=== PATIENT | female | born 2000 | race Caucasian/White ===

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

== ENCOUNTER 2022-09-08 16:56 | Emergency (ER) | payer MEDICAID, SELFPAY ==
[2022-09-08 16:58] VITALS: BP 158/96; PULSE 89; RESP 16; TEMP 36.4; O2SAT 98; BMI 24.0
--- NOTE | 2022-09-08 17:16 | EDS_ITS ---
HPI History of Present Illness Chief Complaint: Head Injury [facility] Medical History S/p Removal of port wine from back Home Medications hydroxyzine HCl 25 mg tablet 25 mg PO Q6H PRN anxiety #40 tabs 11/16/20 [Rx Last Taken Unknown] Allergy/AdvReac Type Severity Reaction Status Date / Time No Known Allergies Allergy Verified 05/16/21 17:51 Family History Unknown Hypertension Thyroid disorder Cancer Diabetes Arthritis Social History Smoking Status: Never smoker alcohol intake: never EXAM Physical Exam Const Vital Signs: 09/08/22 16:58 09/08/22 16:57 Temperature 97.5 F L Temperature Source Temporal Pulse Rate 89 Respiratory Rate 16 Respiratory Effort Normal Respiratory Pattern Normal Blood Pressure 158/96 H Blood Pressure Mean 116 Pulse Ox 98 Oxygen Delivery Method Room Air Discharge Plan Triage Chief Complaint: Head Injury ED Provider: Srinivasa Art Dx/Rx/DC Orders Prescriptions: No Action hydroxyzine HCl 25 mg tablet 25 mg PO Q6H PRN (Reason: anxiety) Qty: 40 0RF Primary Care Provider: Francisco Corrigan Referrals: Francisco Corrigan MD [Primary Care Provider] -
--- NOTE | 2022-09-08 17:16 | EX.ED.GENINJ ---
HPI History of Present Illness Chief Complaint: Head Injury Informant: patient Onset/Context/Timing Onset: Yesterday Mechanism/Context: Blunt Injury Quality of Pain: Aching Location: Frontal scalp Worsened by: Nothing Relieved by: Nothing Associated Symptoms Associated Symptoms: Negative for Parasthesias, Weakness, Loss of function, Inability to ambulate, Loss of consciousness or Amnesia Narrative Narrative: Patient presents with a head injury that occurred last night. Patient states she was talking on the phone and was walking. Patient states it was dark and she did not see a tree branch. Patient states she hit the front of her head on the tree branch. Patient denies any loss of consciousness. Patient admits to some nausea but denies any vomiting. Patient describes her pain as aching. Patient states it is over the frontal area. Patient denies any paresthesias or weakness. Patient denies any neck pain. Patient denies any other injuries. Patient does admit to drinking alcohol last night. PFSH PFS Medical History S/p Removal of port wine from back Home Medications hydroxyzine HCl 25 mg tablet 25 mg PO Q6H PRN anxiety #40 tabs 11/16/20 [Rx Last Taken Unknown] Allergy/AdvReac Type Severity Reaction Status Date / Time No Known Allergies Allergy Verified 05/16/21 17:51 Family History Unknown Hypertension Thyroid disorder Cancer Diabetes Arthritis Social History Smoking Status: Never smoker alcohol intake: never ROS ROS ED Constitutional Constitutional ED: Denies chills or fever(s) Eyes Eyes: Denies blurry vision or change in vision ENT ENT ED: Denies rhinorrhea or sore throat Cardiovascular Cardiovascular: Denies chest pain or palpitations Respiratory/Chest Respiratory/Chest: Denies cough or dyspnea Gastrointestinal Gastrointestinal: Reports nausea; Denies vomiting Genitourinary Genitourinary ED: Denies dysuria or hematuria Musculoskeletal Musculoskeletal: Denies back pain or neck pain Integumentary Denies abscess or rash Neurologic Neurologic: Reports headache(s); Denies weakness Allergic/Immunologic Allergic/Immunologic ED: Denies mouth swelling or urticaria EXAM Physical Exam Const Vital Signs: 09/08/22 16:58 09/08/22 16:57 Temperature 97.5 F L Temperature Source Temporal Pulse Rate 89 Respiratory Rate 16 Respiratory Effort Normal Respiratory Pattern Normal Blood Pressure 158/96 H Blood Pressure Mean 116 Pulse Ox 98 Oxygen Delivery Method Room Air Positive well nourished and well developed General Appearance ED: well developed and NAD HEENT Reports moist mucous membranes HEENT Narrative: There is tenderness over the frontal scalp. There is no edema or ecchymosis. There is no bony crepitance or step-off noted. There is no hematoma noted. Eyes PERRL and EOMs intact bilaterally Neck supple and no JVD Resp normal respiratory effort and clear to auscultation bilaterally Cardio regular rate, regular rhythm and no murmurs Extremity normal to inspection Neuro oriented x3, CN's II-XII intact bilaterally, moves all extremities, no focal motor deficits, no sensory deficits noted and gait normal Sensorium / Orientation: alert Motor Exam: strength 5/5 throughout Psych mental status grossly normal Skin no rashes or lesions noted MDM MDM MDM Narrative Medical decision making narrative: Patient was advised that there is no need for CT scan at this time. Patient does not meet criteria for head CT scan according to the [employer] head CT criteria. Patient was given head injury instructions. Patient was instructed use ice to the area. Patient was instructed to take Tylenol or ibuprofen as needed for headaches. Patient was instructed to follow-up with her primary care physician in 5 to 7 days. Patient understood and was agreeable with the plan. All questions were answered. Discharge Plan Triage Chief Complaint: Head Injury ED Provider: Srinivasa Art Dx/Rx/DC Orders Clinical Impression: Closed head injury Instructions: ED Head Injury (Adult) Prescriptions: No Action hydroxyzine HCl 25 mg tablet 25 mg PO Q6H PRN (Reason: anxiety) Qty: 40 0RF Primary Care Provider: Francisco Corrigan Referrals: Francisco Corrigan MD [Primary Care Provider] - 5-7 Days Disposition Disposition: Home, Self Care
[2022-09-08 17:57] VITALS: BP 124/78; PULSE 64; RESP 14; TEMP 36.6; O2SAT 100
== END 2022-09-08 18:05 | disposition home or self-care (01) ==
LOC: ED 17:42
PROVIDERS: Emergency Provider Emergency Medicine; Visit Provider Emergency Medicine
DX: S09.8XXA Other specified injuries of head, initial encounter (principal); W22.8XXA Striking against or struck by other objects, initial encounter; Y93.01 Activity, walking, marching and hiking
CPT/HCPCS: 99282

== ENCOUNTER 2024-10-30 19:44 | Emergency (ER) | payer MEDICAID, SELFPAY ==
[2024-10-30 19:45] VITALS: BP 115/97; PULSE 110; RESP 15; TEMP 37.3; O2SAT 97; BMI 26.6
[2024-10-30 19:49] VITALS: BP 115/97; PULSE 114; RESP 15; TEMP 37.3; O2SAT 97
--- NOTE | 2024-10-30 20:33 | ED.RN ---
Pt's name called for placement in ED room from waiting room. Pt not located, assumed lwbs.
--- OUTSIDE RECORDS SUMMARY | 2024-10-30 20:50 | XMS RPT_ITS | CCD ---
Author Organization [facility] Content RamenFormerly [facility] Care Team Providers Care 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 Name Role Phone MICHAEL ELLIOTT DO Admitting Unavailable MICHAEL ELLIOTT DO Attending Unavailable MICHAEL ELLIOTT DO Primary Care Unavailable FRANCISCO DELGADILLO Consulting Unavailable FRANCISCO DELGADILLO Referring Unavailable PROVIDER, UNKNOWN Consulting Unavailable Francisco Delgadillo MD Primary Care Provider Francisco Delgadillo MD Primary Care Provider Francisco Delgadillo MD Primary Care Provider FRANCISCO DELGADILLO Primary Care Unavailable LEONA, FRANCISCO P Primary Care Unavailable LEONA, FRANCISCO P Primary Care Unavailable LEONA, FRANCISCO P Primary Care Unavailable ANGELITA GHOTRA Referring Unavailable LEONA, FRANCISCO P Primary Care Unavailable LEONA, FRANCISCO P Primary Care Unavailable LEONA, FRANCISCO P Primary Care Unavailable LEONA, FRANCISCO P Primary Care Unavailable LEONA, FRANCISCO P Primary Care Unavailable Srinivasa Art Attending Unavailable Care Physician, No Primary Primary Care Unava ilFrancisco Sales MD Primary Care Provider Medications Current Medications Medication Drug Class(es) Dates Sig (Normalized) Sig (Original) acetaminophen 325 mg oral capsule (10 sources) acetaminophen 32 5 mg cap Take by mouth. Active Comment on above: Take by mouth. [id number] 200 actuat albuterol 0.09 mg/actuat metered dose inhaler (11 sources) beta2-Adrenergic Agonist Start: 04-20-2020 take 2 puff(s) by inhalation every six hours as needed albuterol HFA (PROAIR HFA) 90 mcg/actuation inhaler Inhale 2 Puffs as instructed every 6 hours as needed. 18 g 04/20/2020 Active Comment on above: Inhale 2 Puffs as in structed every 6 hours as needed. Desogestrel / Ethinyl Estradiol (10 sources) Progestin, Estrogen Start: 11-14-2020 take 1 tablet by mouth once daily, then take 0.15 tablet by mouth once Desogestrel-Ethiny l Estradiol (APRI) 0.15-0.03 mg per tablet Indications: Encounter for BCP ( control pills) initial prescription Take 1 tablet by mouth once daily. 28 tablet 11 11/14/2020 Active Comment on above: Take 1 tablet by timothy th once daily. doxycycline monohydrate 100 mg oral tablet (1 source) Tetracycline-class Drug Start: 11-18-2021 End: 11-23-2021 take 1 tablet by mouth twice daily doxycycline monohydrate 100 mg tablet Take 1 tablet by mouth twice daily for 5 days. 10 tablet 0 11/18/2021 11/23/2021 Active Comment on above: Take 1 tablet by timothy twice daily for 5 days. erythromycin 0.005 mg/mg ophthalmic ointment (2 sources) Macrolide, Macrolide Antimicrobial Start: 11-28-2021 End: 12-12-2021 erythromycin (ROMYCIN) 5 mg/gram (0.5 %) ophthalmic ointment Indications: Hordeolum externum of left upper eyelid Use 1 application in the left eye four times daily for 14 days. 3.5 g 0 11/28/2021 12/12/2021 Active Comment on above: Use 1 application in the left eye four times daily for 14 days. hydrOXYzine hydrochloride 25 mg oral tablet (1 source) Antihistamine Start: 11-16-2020 take 25 mg by mouth every six hours Hydroxyzine Hcl Active 25 MG PO EVERY 6 HOURS 40 November 16, 2020 8:54pm lactobacillus acidophilus [id number] unt oral capsule (10 sources) Lactobacillus acidophilus (PROBIOTIC) 10 billion cell cap Take by mouth. Active Comment on above: Take by mouth. polyethylene glycol 3350 15726 mg powder for oral solution (10 sources) Osmotic Laxative Start: 05-15-2021 polyethylene glycol 3350 (MIRALAX) 17 gram/dose powder Constipation 116 g 05/15/2021 Active Comment on above: Constipation predniSONE 20 mg oral tablet (1 source) Start: 11-18-2021 End: 10-14-2022 take 1 tablet by mouth once daily predniSONE (DELTASONE) 20 mg tablet Take 1 tablet by mouth once daily for 5 days. 5 tablet 0 11/18/2021 11/23/2021 Active Comment on above: Take 1 tablet by timothy once daily for 5 days. Completed/Discontinued Medications Medication Drug Class(es) Dates Sig (Normalized) Sig (Original) brompheniramine maleate 0.4 mg/ml / dextromethorphan hydrobromide 2 mg/ml / pseudoephedrine hydrochloride 6 mg/ml oral solution (11 sources) alpha-Adrenergic Agonist, Uncompetitive O-xgeggj-H-aspartat e Receptor Antagonist, Sigma-1 Agonist Start: 12-22-2020 End: 03-19-2022 take 5-10 mL by mouth every six hours as needed Brompheniramine -Pseudoeph-DM (BROMFED DM) 2-30-10 mg/5 mL syrup Indications: Viral URI with cough Take 5-10 ml po q6h prn 120 mL 0 03/19/2022 Active Start: 04-15-2019 End: 06-07-2020 take 5 mL by mouth every six hours as needed Oojhhejtoarguew-Xnkftxjzh-QU (BROMFED DM ) 2-30-10 mg/5 mL syrup Take 5 mL by mouth four times daily as needed. 118 mL 04/15/2019 06/07/2020 Discontinued (Course of therapy completed) Comment on above: Take 5-10 ml po q6h prn Methylphenidate (1 source) Central Nervous System Stimulant Start: 03-19-2015 End: 10-14-2019 Concerta Discontinued March 19, 2015 11:19am October 14, 2019 8:01am Problems Active Problems Problem Classification Problem Date Documented Date Episodic/Chronic Abdominal pain (4 sources) Generalized abdominal pain; Translations: [Generalized abdominal pain] Onset: 05-15-2021 Episodic Administrative/social admission (1 source) Special examination status; Translations: [Encounter for examination for participation in sport] Episodic Anxiety disorders (1 source) Anxiety; Translations: [Anxiety disorder, unspecified] Chronic Attention-deficit, conduct, and disruptive behavior disorders (11 sources) Attention deficit hyperactivity disorder; Translations: [Attention-deficit hyperactivity disorder, unspecified type] Onset: 05-09-2016 05-09-2016 Chronic Cardiac dysrhythmias (1 source) Palpitations; Translations: [Palpitations] Episodic Immunizations and screening for infectious disease (2 sources) Contact with or exposure to other viral diseases; Translations: [Exposure to COVID-19 virus] Episodic Inflammation; infection of eye (except that caused by tuberculosis or sexually transmitteddisease) (1 source) Hordeolum externum of upper eyelid of left eye; Translations: [Hordeolum externum left upper eyelid] Episodic Malaise and fatigue (1 source) Fatigue; Translations: [Other fatigue] Episodic Other infections; including parasitic (1 source) Disorder due to infection; Translations: [Unspecified infectious disease] Episodic Other injuries and conditions due to external causes (1 source) Other specified injuries of head, initial encounter; Translations: [Other specified injuries of head, initial encounter] Onset: 09-12-2022 Episodic Other upper respiratory infections (5 sources) Pharyngitis; Translations: [Acute pharyngitis, unspecified] Episodic Sprains and strains (1 source) Sprain of ligament of elbow; Translations: [Unspecified sprain of right elbow, initial encounter] Episodic Viral infection (1 source) Viral disease; Translations: [Viral infection, unspecified] Episodic Past or Other Problems Problem Classification Problem Date Documented Da te Episodic/Chronic Other and unspecified benign neoplasm (11 sources) Hemangioma of skin and subcutaneous tissue; Translations: [Hemangioma of skin and subcutaneous tissue] Onset: 10-29-2005 10-29-2005 Episodic Other circulatory disease (11 sources) Disorder of capillaries; Translations: [Disease of capillaries, unspecified] Onset: 10-29-2005 10-29-2005 Episodic Other skin disorders (11 sources) Scar conditions and fibrosis of skin; Translations: [Scar conditions and fibrosis of skin] Onset: 10-29-2005 10-29-2005 Episodic Results Test Name Value Interpretation Reference Range Facility Emergency Department Summary on 09-08-2022 Emergency Department Summary [facility] Medical Records Department [address] [place] [address] Emergency Department Summary 09/08/22 MR#: [id number] Acct: [id number] Name: NORMA FAUSTIN Rep #: [id number] : 2000 From: Srinivasa Art DO PCP: Care Physician,No Primary Status:DEP ER Location: ED HPI History of Present Illness Chief Complaint: Head Injury Informant: patient Onset/Context/Timing Onset: Yesterday Mechanism/Context: Blunt Injury Quality of Pain: Aching Location: Frontal scalp Worsened by: Nothing Relieved by: Nothing Associated Symptoms Associated Symptoms: Negative for Parasthesias, Weakness, Loss of function, Inability to ambulate, Loss of consciousness or Amnesia Narrative Narrative: Patient presents with a head injury that occurred last night. Patient states she was talking on the phone and was walking. Patient states it was dark and she did not see a tree branch. Patient states she hit the front of her head on the tree branch. Patient denies any loss of consciousness. Patient admits to some nausea but denies any vomiting. Patient describes her pain as aching. Patient states it is over the frontal area. Patient denies any paresthesias or weakness. Patient denies any neck pain. Patient denies any other injuries. Patient does admit to drinking alcohol last night. PFSH PFS Medical History S/p Removal of port wine from back Home Medications hydroxyzine HCl 25 mg tablet 25 mg PO Q6H PRN anxiety #40 tabs 11/16/20 [Rx Last Taken Unknown] Allergy/AdvReac Type Severity Reaction Status Date / Time No Known Allergies Allergy Verified 05/16/21 17:51 Family History Unknown Hypertension Thyroid disorder Cancer Diabetes Arthritis Social History Smoking Status: Never smoker alcohol intake: never ROS ROS ED Constitutional Constitutional ED: Denies chills or fever(s) Eyes Eyes: Denies blurry vision or change in vision ENT ENT ED: Denies rhinorrhea or sore throat Cardiovascular Cardiovascular: Denies chest pain or palpitations Respiratory/Chest Respiratory/Chest: Denies cough or dyspnea Gastrointestinal Gastrointestinal: Reports nausea; Denies vomiting Genitourinary Genitourinary ED: Denies dysuria or hematuria Musculoskeletal Musculoskeletal: Denies back pain or neck pain Integumentary Denies abscess or rash Neurologic Neurologic: Reports headache(s); Denies weakness Allergic/Immunologic Allergic/Immunologic ED: Denies mouth swelling or urticaria EXAM Physical Exam Const Vital Signs: 09/08/22 16:58 09/08/22 16:57 Temperature 97.5 F L Temperature Source Temporal Pulse Rate 89 Respiratory Rate 16 Respiratory Effort Normal Respiratory Pattern Normal Blood Pressure 158/96 H Blood Pressure Mean 116 Pulse Ox 98 Oxygen Delivery Method Room Air Positive well nourished and well developed General Appearance ED: well developed and NAD HEENT Reports moist mucous membranes HEENT Narrative: There is tenderness over the frontal scalp. There is no edema or ecchymosis. There is no bony crepitance or step-off noted. There is no hematoma noted. Eyes PERRL and EOMs intact bilaterally Neck supple and no JVD Resp normal respiratory effort and clear to auscultation bilaterally Cardio regular rate, regular rhythm and no murmurs Extremity normal to inspection Neuro oriented x3, CN's II-XII intact bilaterally, moves all extremities, no focal motor deficits, no sensory deficits noted and gait normal Sensorium / Orientation: alert Motor Exam: strength 5/5 throughout Psych mental status grossly normal Skin no rashes or lesions noted MDM MDM MDM Narrative Medical decision making narrative: Patient was advised that there is no need for CT scan at this time. Patient does not meet criteria for head CT scan according to the [employer] head CT criteria. Patient was given head injury inst ructions. Patient was instructed use ice to the area. Patient was instructed to take Tylenol or ibuprofen as needed for headaches. Patient was instructed to follow-up with her primary care physician in 5 to 7 days. Patient understood and was agreeable with the plan. All questions were answered. Discharge Plan Triage Chief Complaint: Head Injury ED Provider: Srinivasa Art Dx/Rx/DC Orders Clinical Impression: Closed head injury Instructions: ED Head Injury (Adult) Prescriptions: No Action hydroxyzine HCl 25 mg tablet 25 mg PO Q6H PRN (Reason: anxiety) Qty: 40 0RF Primary Care Provider: Francisco Delgadillo Referrals: Francisco Delgadillo MD [Primary Care Provider] - 5-7 Days Disposition Disposit (more content not included)... Normal [facility] CNOVon 03-19-2022 CNOV Office Visit ([facility] ) CAPONORMA Serina ([id number]) 4 F Date Time Provider Department 03/19/22 2:30 PM ANGELINA SILVEIRA [facility] During your visit today, we recorded the following information about you: Temperature Pulse Respiration Blood pressure 97.5 degrees 76/minute 16/minute 120/72 Weight 84.4 kg Angelina Silveira APRN.CNP 03/19/2022 2:51 PM Signed ASSESSMENT/PLAN: 1. Sore throat - ICD9: 462, ICD10: J02.9 (primary diagnosis) - suspect viral - Alere Strep Test negative, no culture pending - Discussed supportive care treatment with fluids, rest and analgesia. - STREP A MOLECULAR (POC) 2. Viral URI with cough - ICD9: 465.9, ICD10: J06.9 - Discussed viral etiology and rationale for treatment. - Symptomatic treatment with prn analgesia - Supportive care with fluids and rest - BROMPHENIRAMINE-PSEUDO EPHEDRINE-DM 2 MG-30 MG-10 MG/5 ML ORAL SYRUP - offered COVID/flu testing, patient declined. - Follow-up with your PCP in 3-5 days if symptoms have not improved or sooner if symptoms worsen - Discussed red flags and need for immediate medical evaluation if any occur. - Discussed supportive care treatment with fluids, rest and analgesia. - Discussed expected course of illness Angelina Silveira APRN.CNP Treatment for Viral Upper Respiratory Tract Infections Your body will kill off the virus by itself. Additionally, you can prime your body's immune system. This may help you get better more quickly. Drink lots of fluids Make sure you are eating well Get plenty of rest We do not have any medications that kill off these viruses. Antibiotics are used to treat bacterial infections; however, they are not active against viral infections. There are some things that might help you feel better, though. Vaporizers, humidifiers, hot showers, and hot fluids help open respiratory and sinus passages [place] [employer] may offer relief of nasal and head congestion Vu's Vapor Rub may relieve congestion Tylenol and Advil help control fevers and headaches Salt water gargles help relieve sore throats Chloraceptic spray or throat lozenges may also help relieve sore throat symptoms Occasionally, viral infections turn into something more serious. You should see your doctor or return to the Urgent Care if: You have fevers for longer than five days You have fevers above 102 degrees You are still sick after 10 days You have shortness of breath or wheezing After several days you are getting worse rather than better Angelina Silveira APRN.EDITING COMPUTER PUBLISHER 03/19/2022 2:59 PM Signed Subjective Sinus Problem Associated symptoms include congestion, coughing and a sore throat. Pertinent negatives include no chills, fever or rash. Norma Faustin is a 21 year old female who presents with sinus drainage, cough, sore throat for the past 4 days. She had a fever the first day of the illness but that resolved. She has been taking Nyquil at home. Her boyfriend was sick recently. Review of Systems Constitutional: Negative for chills and fever. HENT: Positive for congestion and sore throat. Negative for ear pain. Respiratory: Positive for cough. Cardiovascular: Negative. Musculoskeletal: Negative. Skin: Negative for rash. BP 120/72 Pulse 76 Temp 36.4 ?C (97.5 ?F) Resp 16 Wt 84.4 kg (186 lb) LMP 02/02/2022 (Exact Date) SpO2 98% PAST MEDICAL HISTORY Diagnosis Date ADHD (attention deficit hyperactivity disorder) Irregular periods -2016 Age 14 PMH - PAST MEDICAL HISTORY OF 01/03/12 Color Vision - Normal PAST SURGICAL HISTORY Procedure Laterality Date BACK SURGERY HX 2010 Tumor/ adrien removed NONE ALLERGIES Patient has no known allergies. MEDICATIONS acetaminophen 325 mg cap Take by mouth. Lactobacillus acidophilus (PROBIOTIC) 10 billion cell cap Take by mouth. Brompheniramine-Pseudo eph-DM (BROMFED DM) 2-30-10 mg/5 mL syrup Take 5-10 ml po q6h prn polyethylene glycol 3350 (MIRALAX) 17 gram/dose powder Constipation (Patient not taking: Reported on 11/28/2021) Desogestrel-Ethinyl Estradiol (APRI) 0.15-0.03 mg per tablet Take 1 tablet by mouth once daily. (Patient not taking: Reported on 03/19/2021 ) albuterol HFA (PROAIR HFA) 90 mcg/actuation inhaler Inhale 2 Puffs as instructed every 6 hours as needed. (Patient not taking: Reported on 11/14/2020 ) FAMILY HISTORY Problem Relation Age of Onset other (Robins-Miguel Syndrome) Father diagnosed 01/2016 None Paternal Grandfather Social History Tobacco Use Smoking status: Never Passive exposure: Yes Smokeless tobacco: Never Tobacco comments: Mother smokes outside of the home Vaping Use Vaping Use: Former Substance Use Topics Alcohol use: No Drug use: No Objective Physical Exam Vitals and nursing note reviewed. Constitutional: Appearance: Normal appearance. HENT: Right Ear: Tympanic membrane, ear (more content not included)... Normal [facility] STREP A MOLECULAR (POC)on Procedural Control Valid [facility] Strep A (POCT) Negative Negative [facility] CNOVon 02-19-2022 CNOV Office Visit ([facility] ) NORMA FAUSTIN ([id number]) 4 F Date Time Provider Department 02/19/22 1:15 PM NIGHAT SOLIMAN WS During your visit today, we recorded the following information about you: Temperature Pulse Respiration Blood pressure 98.7 degrees 98/minute 16/minute 120/66 Weight Last Period 85.2 kg 02/02/22 Nighat Soliman APRN.EDITING COMPUTER PUBLISHER 02/19/2022 2:03 PM Signed This note was created using [employer] Systems[employer]. Subjective Norma Smalls Capo is a 21 year old female. 21 year old female with PMH ADHD presents with complaints of illness. 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 No records management associate was used. URI She complains of cough. There is no chest tightness, difficulty breathing, frequent throat clearing, hemoptysis, hoarse voice, shortness of breath, sputum production or wheezing. This is a new problem. The current episode started in the past 7 days. The problem occurs constantly. The problem has been unchanged. The cough is non-productive. Associated symptoms include ear congestion, a fever, headaches, malaise/fatigue, myalgias, nasal congestion, rhinorrhea and a sore throat. Pertinent negatives include no appetite change, chest pain, dyspnea on exertion, ear pain, heartburn, orthopnea, PND, postnasal drip, sneezing, sweats, trouble swallowing or weight loss. Her symptoms are aggravated by nothing. Her symptoms are alleviated by nothing. She reports no improvement on treatment. There are no known risk factors for lung disease. There is no history of asthma, bronchiectasis, bronchitis, COPD, emphysema or pneumonia. PAST MEDICAL HISTORY Diagnosis Date ADHD (attention deficit hyperactivity disorder) Irregular periods -2015 Age 14 PMH - PAST MEDICAL HISTORY OF 01/03/12 Color Vision - Normal PAST SURGICAL HISTORY Procedure Laterality Date BACK SURGERY HX 2010 Tumor/ adrien removed NONE ALLERGIES Patient has no known allergies. MEDICATIONS acetaminophen 325 mg cap Take by mouth. Lactobacillus acidophilus (PROBIOTIC) 10 billion cell cap Take by mouth. polyethylene glycol 3350 (MIRALAX) 17 gram/dose powder Constipation (Patient not taking: Reported on 11/28/2021) Brompheniramine-Pseudo eph-DM (BROMFED DM) 2-30-10 mg/5 mL syrup Take 5-10 ml po q6h prn (Patient not taking: Reported on 03/19/2021 ) Desogestrel-Ethinyl Estradiol (APRI) 0.15-0.03 mg per tablet Take 1 tablet by mouth once daily. (Patient not taking: Reported on 03/19/2021 ) albuterol HFA (PROAIR HFA) 90 mcg/actuation inhaler Inhale 2 Puffs as instructed every 6 hours as needed. (Patient not taking: Reported on 11/14/2020 ) FAMILY HISTORY Problem Relation Age of Onset other (Robins-Miguel Syndrome) Father diagnosed 01/2016 None Paternal Grandfather Social History Tobacco Use Smoking status: Never Passive exposure: Yes Smokeless tobacco: Never Tobacco comments: Mother smokes outside of the home Vaping Use Vaping Use: Former Substance Use Topics Alcohol use: No Drug use: No Review of Systems Constitutional: Positive for chills, fatigue, fever and malaise/fatigue. Negative for appetite change and weight loss. HENT: Positive for congestion, rhinorrhea and sore throat. Negative for ear pain, hoarse voice, postnasal drip, sneezing and trouble swallowing. Eyes: Negative for photophobia, pain, discharge, redness, itching and visual disturbance. Respiratory: Positive for cough. Negative for apnea, hemoptysis, sputum production, chest tightness, shortness of breath and wheezing. Cardiovascular: Negative for chest pain, dyspnea on exertion and PND. Gastrointestinal: Negative for abdominal pain, diarrhea, heartburn, nausea and vomiting. Musculoskeletal: Positive for myalgias. Negative for arthralgias, back pain and gait problem. Skin: Negative for color change, pallor, rash and wound. Allergic/Immunologic: Negative for environmental allergies, food allergies and immunocompromised state. Neurological: Positive for headaches. Negative for dizziness and facial asymmetry. Hematological: Negative for adenopathy. Does not bruise/bleed easily. Psychiatric/Behavioral : Negative for agitation and behavioral problems. Objective BP 120/66 Pulse 98 Temp 37.1 ?C (98.7 ?F) (Tympanic) Resp 16 Wt 85.2 kg (187 lb 12.8 oz) LMP 02/02/2022 (Exact Date) SpO2 99% Physical Exam Vitals and nursing note reviewed. Constitutional: General: She is not in acute distress. Appearance: Normal appearance. She is normal weight. She is not ill-appearing, toxic-appearing or diaphoretic. HENT: Head: (more content not included)... Normal [facility] STREP A MOLECULAR (POC)on Procedural Control Valid [facility] Strep A (POCT) Negative Negative [facility] Bailee 12-13-2021 [facility] Telephone ([facility]) NORMA FAUSTIN ([id number]) 4 F Date Time Provider Department 12/13/21 ANGELITA GHOTRA YAAKOV During your visit today, we recorded the following information about you: Angelita Ghotra APRN.FARRUKH 12/13/2021 7:38 AM Signed Negative for flu and COVID please notify thank you Brandon Aponte LPN 12/13/2021 8:57 AM Signed Phone call placed patients mother (Jocelin) listed on chart advised (see prior provider encounter) Brandon Aponte LPN Allergies As of Date: 12/13/2021 (No Known Allergies) Date Reviewed: 12/12/2021 Reviewed by: Bradly Vernon APRN.FARRUKH - Fully Assessed Reason for Visit: Results [95] Prescriptions as of 12/13/2021 - acetaminophen 325 mg cap Take by mouth. - Lactobacillus acidophilus (PROBIOTIC) 10 billion cell cap Take by mouth. - polyethylene glycol 3350 (MIRALAX) 17 gram/dose powder Constipation - Brompheniramine-Pseudo eph-DM (BROMFED DM) 2-30-10 mg/5 mL syrup Take 5-10 ml po q6h prn - Desogestrel-Ethinyl Estradiol (APRI) 0.15-0.03 mg per tablet Take 1 tablet by mouth once daily. - albuterol HFA (PROAIR HFA) 90 mcg/actuation inhaler Inhale 2 Puffs as instructed every 6 hours as needed. 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] 10/29/2005 SCAR AND FIBROSIS OF SKIN [L90.5] 10/29/2005 ADHD (attention deficit hyperactivity disorder)*05/09/2016 Encounter Status:Closed by BRANDON APONTE LPN on 12/13/21 [facility] CNOVon 12-12-2021 CNOV Office Visit ([facility] ) NORMA FAUSTIN ([id number]) 4 F Date Time Provider Department 12/12/21 3:30 PM JANEEN BRADLY [facility] During your visit today, we recorded the following information about you: Temperature Pulse Respiration Blood pressure 98.7 degrees 75/minute 23/minute 102/80 Weight 85.2 kg Bradly Vernon APRN.EDITING COMPUTER PUBLISHER 12/12/2021 3:42 PM Signed Subjective HPI Nontoxic-appearing female presents urgent care chief plaint sore throat headache fatigue. Duration of symptoms 3 days. Associated symptoms listed above. Patient states most prominent symptom today is fatigue. Was sent home from work earlier today. No known sick contacts. Has not use any OTC medications today. History of strep throat. This feels similar. Denies any fever today body aches chills productive cough chest pain shortness of breath pleuritic pain hemoptysis nausea vomiting abdominal pain change in bowel or bladder habits. Past medical history prescription medication use and allergies reviewed. .Patient presents with: Sore Throat: STEVENSON, fever x 3 days PAST MEDICAL HISTORY Diagnosis Date ADHD (attention deficit hyperactivity disorder) Irregular periods -2015 Age 14 PMH - PAST MEDICAL HISTORY OF 01/03/12 Color Vision - Normal PAST SURGICAL HISTORY Procedure Laterality Date BACK SURGERY HX 2010 Tumor/ adrien removed NONE ALLERGIES Patient has no known allergies. MEDICATIONS erythromycin (ROMYCIN) 5 mg/gram (0.5 %) ophthalmic ointment Use 1 application in the left eye four times daily for 14 days. acetaminophen 325 mg cap Take by mouth. Lactobacillus acidophilus (PROBIOTIC) 10 billion cell cap Take by mouth. polyethylene glycol 3350 (MIRALAX) 17 gram/dose powder Constipation (Patient not taking: Reported on 11/28/2021) Brompheniramine-Pseudo eph-DM (BROMFED DM) 2-30-10 mg/5 mL syrup Take 5-10 ml po q6h prn (Patient not taking: Reported on 03/19/2021 ) Desogestrel-Ethinyl Estradiol (APRI) 0.15-0.03 mg per tablet Take 1 tablet by mouth once daily. (Patient not taking: Reported on 03/19/2021 ) albuterol HFA (PROAIR HFA) 90 mcg/actuation inhaler Inhale 2 Puffs as instructed every 6 hours as needed. (Patient not taking: Reported on 11/14/2020 ) FAMILY HISTORY Problem Relation Age of Onset other (Robins-Miguel Syndrome) Father diagnosed 01/2016 None Paternal Grandfather Social History Tobacco Use Smoking status: Never Passive exposure: Yes Smokeless tobacco: Never Tobacco comments: Mother smokes outside of the home Vaping Use Vaping Use: Former Substance Use Topics Alcohol use: No Drug use: No BP 102/80 Pulse 75 Temp 37.1 ?C (98.7 ?F) Resp 23 Wt 85.2 kg (187 lb 12.8 oz) LMP 09/23/2021 (Exact Date) SpO2 99% Review of Systems Constitutional: Positive for fever and malaise/fatigue. Negative for chills. HENT: Positive for sore throat. Negative for congestion, ear discharge, ear pain and sinus pain. Eyes: Negative for blurred vision, pain, discharge and redness. Respiratory: Negative for cough, hemoptysis, sputum production, shortness of breath, wheezing and stridor. Cardiovascular: Negative for chest pain. Gastrointestinal: Negative for abdominal pain, diarrhea, nausea and vomiting. Musculoskeletal: Positive for myalgias. Skin: Negative for itching and rash. Neurological: Positive for headaches. Negative for dizziness. Objective Physical Exam Constitutional: General: She is not in acute distress. Appearance: She is not diaphoretic. HENT: Head: Normocephalic. Jaw: No trismus or tenderness. Nose: Nose normal. Mouth/Throat: Lips: [place]. Mouth: Mucous membranes are moist. Pharynx: Oropharynx is clear. Uvula midline. Posterior oropharyngeal erythema present. No pharyngeal swelling, oropharyngeal exudate or uvula swelling. Tonsils: No tonsillar exudate or tonsillar abscesses. Eyes: Conjunctiva/sclera: Conjunctivae normal. Pupils: Pupils are equal, round, and reactive to light. Cardiovascular: Rate and Rhythm: Normal rate and regular rhythm. Heart sounds: Normal heart sounds. Pulmonary: Effort: Pulmonary effort is normal. No tachypnea, accessory muscle usage or respiratory distress. Breath sounds: Normal breath sounds. No stridor. No wheezing, rhonchi or rales. Abdominal: Palpations: Abdomen is soft. Tenderness: There is no abdominal tenderness. Musculoskeletal: Cervical back: Normal range of motion and neck supple. No rigidity or tenderness. Lymphadenopathy: Cervical: No cervical adenopathy. Skin: General: Skin is warm and dry. Neurological: Mental Status: She is alert and oriented to person, place, and time. ASSESSMENT/PLAN: 1. Pharyngitis, unspecified etiology - ICD9: 462, ICD10: J02.9 (primary diagnosis) - STREP A MOLECULAR (POC) - COVID WITH FLUA+B, ROUTINE - MONOTEST, INFECTIOUS MONO 2. Fatigue, unspeci (more content not included)... Normal [facility] STREP A MOLECULAR (POC)on Procedural Control Valid [facility] Strep A (POCT) Negative Negative [facility] CNOVon 11-28-2021 CNOV Office Visit (UCWSTR ) CAPONORMA ([id number]) 4 F Date Time Provider Department 11/28/21 4:45 PM [facility] During your visit today, we recorded the following information about you: Temperature Pulse Respiration Blood pressure 98 degrees 76/minute 21/minute 118/80 Weight 85 kg Monie Patino APRN.CNP 11/28/2021 5:02 PM Signed SUBJECTIVE: Norma Smalls Capo is a 21 year old female. Who presents today with a stye to her left upper eyelid. She was treated 10 days ago with doxy and prednisone. It almost went away and now it is back. She has no blurred vision. No fever she has no pain in the eye itself. She is here today with concern of stye HPI PAST MEDICAL HISTORY Diagnosis Date ADHD (attention deficit hyperactivity disorder) Irregular periods -2015 Age 14 PMH - PAST MEDICAL HISTORY OF 01/03/12 Color Vision - Normal FAMILY HISTORY Problem Relation Age of Onset other (Robins-Miguel Syndrome) Father diagnosed 01/2016 None Paternal Grandfather Social History Tobacco Use Smoking status: Never Passive exposure: Yes Smokeless tobacco: Never Tobacco comments: Mother smokes outside of the home Vaping Use Vaping Use: Former Substance Use Topics Alcohol use: No Drug use: No ALLERGIES No Known Allergies Current Outpatient Medications Medication Sig Dispense Refill acetaminophen 325 mg cap Take by mouth. Lactobacillus acidophilus (PROBIOTIC) 10 billion cell cap Take by mouth. polyethylene glycol 3350 (MIRALAX) 17 gram/dose powder Constipation (Patient not taking: Reported on 11/28/2021) 116 g 0 Brompheniramine-Pseudo eph-DM (BROMFED DM) 2-30-10 mg/5 mL syrup Take 5-10 ml po q6h prn (Patient not taking: Reported on 03/19/2021 ) 120 mL 0 Desogestrel-Ethinyl Estradiol (APRI) 0.15-0.03 mg per tablet Take 1 tablet by mouth once daily. (Patient not taking: Reported on 03/19/2021 ) 28 tablet 11 albuterol HFA (PROAIR HFA) 90 mcg/actuation inhaler Inhale 2 Puffs as instructed every 6 hours as needed. (Patient not taking: Reported on 11/14/2020 ) 18 g 0 No current facility-administered medications for this visit. OBJECTIVE: BP 118/80 Pulse 76 Temp 36.7 ?C (98 ?F) Resp 21 Wt 85 kg (187 lb 6.4 oz) LMP 09/23/2021 (Exact Date) SpO2 99% ROS all other systems reviewed and are negative Physical Exam Constitutional: Well developed, well nourished, NAD, AANDO X3. ENT: Head is atraumatic, airway patent, mucosal membranes moist Left upper eye lid with red stye no signs of cellulitis. Neck: supple with no palpable lymph nodes Cardiac: Heart tone normal rate and rhythm Respiratory: Breath sounds clear : no CVA tenderness MS: no swelling, tenderness or deformity in upper or lower extremities, no midline tenderness in cervical, thoracic or lumbar spine. Neuro: strength sensation and coordination intact. CN II-XII grossly intact, Skin: warm and dry with out rash, lesion or ecchymosis on exposed skin Psych: alert appropriate, speech clear It was a pleasure to take care of Norma Faustin today. She has just finished antibiotics and steroids and the infection has come back. Today I will give her erythromycin ointment for the stye. She will f/u with her eye doctor. She will use warm compresses and may take motrin for pian Patient will follow up with family physician. They may return to the Urgent Care or go to the ER for worsening symptoms or concerns. Patient verbalized understanding of plan of care and is in agreement. ASSESSMENT/PLAN: 1. Hordeolum externum of left upper eyelid - ICD9: 373.11, ICD10: H00.014 - ERYTHROMYCIN 5 MG/GRAM (0.5 %) EYE OINTMENT Monie Patino APRN.EDITING COMPUTER PUBLISHER Referring Provider: SELF [200] Allergies As of Date: 11/28/2021 (No Known Allergies) Date Reviewed: 11/28/2021 Reviewed by: Flroes Martines MA - Fully Assessed Reason for Visit: Eye Problem [43] Cmt: Left eye infection x 2 weeks Primary Visit Diagnosis:Hordeolum externum of left upper eyelid [H00.014] Order(s):erythromycin (ROMYCIN) 5 mg/gram (0.5 %) ophthalmic ointmentUse 1 application in the left eye four times daily for 14 days.Disp: 3.5 gRfl: 0 Prescriptions as of 11/28/2021 - erythromycin (ROMYCIN) 5 mg/gram (0.5 %) ophthalmic ointment Use 1 application in the left eye four times daily for 14 days. - acetaminophen 325 mg cap Take by mouth. - Lactobacillus acidophilus (PROBIOTIC) 10 billion cell cap Take by mouth. - polyethylene glycol 3350 (MIRALAX) 17 gram/dose powder Constipation - Brompheniramine-Pseudo eph-DM (BROMFED DM) 2-30-10 mg/5 mL syrup Take 5-10 ml po q6h prn - Desogestrel-Ethinyl Estradiol (APRI) 0.15-0.03 mg per tablet Take 1 tablet by mouth once daily. - albuterol HFA (PROAIR HFA) 90 mcg/actuation inhaler Inhale 2 Puffs as instructed every 6 hours as needed. Problem List As Of Date 11/28/2021 Noted Resolved CAVERN (more content not included)... Normal [facility] CNOVon 11-18-2021 CNOV Office Visit (WSTR ) CAPONORMA ([id number]) 4 F Date Time Provider Department 11/18/21 1:30 PM ANGELITA GHOTRA [facility] During your visit today, we recorded the following information about you: Temperature Pulse Respiration Blood pressure 98.5 degrees 78/minute 16/minute 118/80 Weight 85.4 kg Angelita Ghotra APRN.EDITING COMPUTER PUBLISHER 11/18/2021 1:53 PM Signed Subjective Has some redness and swelling on the left upper eyelid. Patient says its been about 1 day. Patient's had this before. Patient denies any pain or visual changes in the actual eyeball. Patient denies any other symptoms or injuries to the area. The history is provided by the patient. No records management associate was used. Eye Problem Review of Systems Constitutional: Negative. Skin: Negative. Objective Physical Exam Constitutional: Appearance: Normal appearance. Eyes: General: Right eye: No hordeolum. Left eye: Hordeolum present. Comments: Patient has swelling in the blue area marked above. Patient has erythema in the red area marked above. Appears to be an infected stye. Pulmonary: Effort: Pulmonary effort is normal. Neurological: Mental Status: She is alert. PAST MEDICAL HISTORY Diagnosis Date ADHD (attention deficit hyperactivity disorder) Irregular periods -2015 Age 14 PMH - PAST MEDICAL HISTORY OF 01/03/12 Color Vision - Normal PAST SURGICAL HISTORY Procedure Laterality Date BACK SURGERY HX 2010 Tumor/ adrien removed NONE ALLERGIES Patient has no known allergies. MEDICATIONS acetaminophen 325 mg cap Take by mouth. doxycycline monohydrate 100 mg tablet Take 1 tablet by mouth twice daily for 5 days. predniSONE (DELTASONE) 20 mg tablet Take 1 tablet by mouth once daily for 5 days. Lactobacillus acidophilus (PROBIOTIC) 10 billion cell cap Take by mouth. polyethylene glycol 3350 (MIRALAX) 17 gram/dose powder Constipation Brompheniramine-Pseudo eph-DM (BROMFED DM) 2-30-10 mg/5 mL syrup Take 5-10 ml po q6h prn (Patient not taking: Reported on 03/19/2021 ) Desogestrel-Ethinyl Estradiol (APRI) 0.15-0.03 mg per tablet Take 1 tablet by mouth once daily. (Patient not taking: Reported on 03/19/2021 ) albuterol HFA (PROAIR HFA) 90 mcg/actuation inhaler Inhale 2 Puffs as instructed every 6 hours as needed. (Patient not taking: Reported on 11/14/2020 ) FAMILY HISTORY Problem Relation Age of Onset other (Robins-Miguel Syndrome) Father diagnosed 01/2016 None Paternal Grandfather Social History Tobacco Use Smoking status: Never Passive exposure: Yes Smokeless tobacco: Never Tobacco comments: Mother smokes outside of the home Vaping Use Vaping Use: Former Substance Use Topics Alcohol use: No Drug use: No ASSESSMENT/PLAN: 1. Infection - ICD9: 136.9, ICD10: B99.9 Prednisone daily for 5 days doxycycline twice a day for 5 days. Instructed to follow-up if anything changes or worsens. Patient was okay with this care plan Angelita Ghotra APRN.EDITING COMPUTER PUBLISHER Allergies As of Date: 11/18/2021 (No Known Allergies) Date Reviewed: 11/18/2021 Reviewed by: Charlotte Rinaldi LPN - Fully Assessed Reason for Visit: Eye Problem [43] Cmt: Left eye swollen and itchy x 1 day Primary Visit Diagnosis:Infection [B99.9] Order(s):doxycycline monohydrate 100 mg tabletTake 1 tablet by mouth twice daily for 5 days.Disp: 10 tabletRfl: 0 predniSONE (DELTASONE) 20 mg tabletTake 1 tablet by mouth once daily for 5 days.Disp: 5 tabletRfl: 0 Prescriptions as of 11/18/2021 - doxycycline monohydrate 100 mg tablet Take 1 tablet by mouth twice daily for 5 days. - predniSONE (DELTASONE) 20 mg tablet Take 1 tablet by mouth once daily for 5 days. - acetaminophen 325 mg cap Take by mouth. - Lactobacillus acidophilus (PROBIOTIC) 10 billion cell cap Take by mouth. - polyethylene glycol 3350 (MIRALAX) 17 gram/dose powder Constipation - Brompheniramine-Pseudo eph-DM (BROMFED DM) 2-30-10 mg/5 mL syrup Take 5-10 ml po q6h prn - Desogestrel-Ethinyl Estradiol (APRI) 0.15-0.03 mg per tablet Take 1 tablet by mouth once daily. - albuterol HFA (PROAIR HFA) 90 mcg/actuation inhaler Inhale 2 Puffs as instructed every 6 hours as needed. 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 PREDNISONE 20 MG TABLET 5 ta* 0 11/18/2021 11/23/2021 Route: ORAL Sig: Take 1 tablet by mouth once daily for 5 days. Encounter Status:Closed by ANGELITA GHOTRA on 11/18/21 [facility] 10-24-2021 [facility] Telephone (UCTR) NORMA FAUSTIN ([id number]) 02 F Date Time Provider Department 10/24/21 ANGELITA GHOTRA [facility] During your visit today, we recorded the following information about you: Angelita Ghotra APRN.[facility] 10/24/2021 7:45 AM Addendum negative for flu and COVID please notify thank you Flores Martines MA 10/24/2021 7:59 AM Signed Attempted to call pt, voicemail was full will try again later. WOODROW Carbajal 10/27/2021 2:30 PM Signed viewed in [employer]. Lizet Harris Allergies As of Date: 10/24/2021 (No Known Allergies) Date Reviewed: 05/16/2021 Reviewed by: Bradly Vernon APRN.EDITING COMPUTER PUBLISHER - Fully Assessed Reason for Visit: Results [95] Prescriptions as of 10/27/2021 - acetaminophen (TYLENOL) 325 mg cap Take by mouth. - Lactobacillus acidophilus (PROBIOTIC) 10 billion cell cap Take by mouth. - polyethylene glycol 3350 (MIRALAX) 17 gram/dose powder Constipation - Brompheniramine-Pseudo eph-DM (BROMFED DM) 2-30-10 mg/5 mL syrup Take 5-10 ml po q6h prn - Desogestrel-Ethinyl Estradiol (APRI) 0.15-0.03 mg per tablet Take 1 tablet by mouth once daily. - albuterol HFA (PROAIR HFA) 90 mcg/actuation inhaler Inhale 2 Puffs as instructed every 6 hours as needed. 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] 10/29/2005 SCAR AND FIBROSIS OF SKIN [L90.5] 10/29/2005 ADHD (attention deficit hyperactivity disorder)*05/09/2016 Encounter Status:Closed by LIZET HARRIS on 10/27/21 [facility] CNOVon 10-23-2021 CNOV Office Visit (UCWSTR ) NORMA FAUSTIN ([id number]) 02 F Date Time Provider Department 10/23/21 4:30 PM NIGHAT SOLIMAN WSTR During your visit today, we recorded the following information about you: Temperature Pulse Respiration Blood pressure 98 degrees 85/minute 16/minute 116/72 Weight Last Period 83.2 kg 08/14/22 Nighat Soliman, PRACTICE DIRECTOR.EDITING COMPUTER PUBLISHER 10/23/2021 5:25 PM Signed This note was created using NoteWriter. Subjective Norma Faustin is a 21 year old female. 21 year old female with PMH ADHD presents with complaints of illness. Acute onset one week ago +congestion +cough States yesterday was Acute onset sore throat and headache. +nausea. Denies CP. Denies SOB. States that she utilized Advil and it helped with headache. + ill contacts The history is provided by the patient. No records management associate was used. URI She complains of cough. There is no chest tightness, difficulty breathing, frequent throat clearing, hemoptysis, hoarse voice, shortness of breath, sputum production or wheezing. This is a new problem. The current episode started in the past 7 days. The problem occurs constantly. The problem has been waxing and waning. The cough is non-productive. Associated symptoms include ear congestion, a fever, headaches, nasal congestion, rhinorrhea, sneezing and a sore throat. Pertinent negatives include no appetite change, chest pain, dyspnea on exertion, heartburn, malaise/fatigue, myalgias, sweats, trouble swallowing or weight loss. Relieved by: Advil. There are no known risk factors for lung disease. There is no history of asthma, bronchiectasis, bronchitis, COPD, emphysema or pneumonia. PAST MEDICAL HISTORY Diagnosis Date ADHD (attention deficit hyperactivity disorder) Irregular periods -2016 Age 14 PMH - PAST MEDICAL HISTORY OF 01/03/12 Color Vision - Normal PAST SURGICAL HISTORY Procedure Laterality Date BACK SURGERY HX 2010 Tumor/ adrien removed NONE ALLERGIES Patient has no known allergies. MEDICATIONS Lactobacillus acidophilus (PROBIOTIC) 10 billion cell cap Take by mouth. polyethylene glycol 3350 (MIRALAX) 17 gram/dose powder Constipation acetaminophen (TYLENOL) 325 mg cap Take by mouth. Brompheniramine-Pseudo eph-DM (BROMFED DM) 2-30-10 mg/5 mL syrup Take 5-10 ml po q6h prn (Patient not taking: Reported on 03/19/2021 ) Desogestrel-Ethinyl Estradiol (APRI) 0.15-0.03 mg per tablet Take 1 tablet by mouth once daily. (Patient not taking: Reported on 03/19/2021 ) albuterol HFA (PROAIR HFA) 90 mcg/actuation inhaler Inhale 2 Puffs as instructed every 6 hours as needed. (Patient not taking: Reported on 11/14/2020 ) FAMILY HISTORY Problem Relation Age of Onset other (Robins-Miguel Syndrome) Father diagnosed 01/2016 None Paternal Grandfather Social History Tobacco Use Smoking status: Never Passive exposure: Yes Smokeless tobacco: Never Tobacco comments: Mother smokes outside of the home Vaping Use Vaping Use: Former Substance Use Topics Alcohol use: No Drug use: No Review of Systems Constitutional: Positive for chills and fever. Negative for appetite change, malaise/fatigue and weight loss. HENT: Positive for congestion, rhinorrhea, sneezing and sore throat. Negative for hoarse voice and trouble swallowing. Eyes: Negative for pain, discharge, redness and itching. Respiratory: Positive for cough. Negative for apnea, hemoptysis, sputum production, choking, chest tightness, shortness of breath and wheezing. Cardiovascular: Negative for chest pain, dyspnea on exertion, palpitations and leg swelling. Gastrointestinal: Negative for abdominal pain, diarrhea, heartburn, nausea and vomiting. Musculoskeletal: Negative for arthralgias, back pain, gait problem and myalgias. Skin: Negative for color change, pallor, rash and wound. Allergic/Immunologic: Negative for environmental allergies, food allergies and immunocompromised state. Neurological: Positive for headaches. Negative for dizziness and facial asymmetry. Hematological: Negative for adenopathy. Does not bruise/bleed easily. Psychiatric/Behavioral : Negative for agitation and behavioral problems. Objective BP 116/72 Pulse 85 Temp 36.7 ?C (98 ?F) Resp 16 Wt 83.2 kg (183 lb 6.4 oz) LMP 09/23/2021 (Exact Date) SpO2 99% Physical Exam Vitals and nursing note reviewed. Constitutional: General: She is not in acute distress. Appearance: Normal appearance. She is normal weight. She is not ill-appearing, toxic-appearing or diaphoretic. HENT: Head: Normocephalic and atraumatic. Right Ear: Ear canal and external ear normal. Left Ear: Ear canal and external ear normal. Nose: Nose normal. No congestion or rhinorrhea. Mouth/Throat: Mouth: Mucous membranes are moist. Pharynx: Posterior oropharyngeal erythema (posterior erythema. Uvula midline.) present. No nicole (more content not included)... Normal [facility] Influenza virus A and B RNA and SARS-CoV-2 (COVID-19) N gene panel MIGDALIA+probe (Resp)on 10-23-2021 FLUAV RNA MIGDALIA+probe Ql (Unsp spec) Negative Normal Negative for Influenza A by RT-PCR [facility] Comment on above: Order Comment: Speci men Type: SWAB OF INTERNAL NOSEOrdering Facility: [facility] Address: [address] [place] [address] Performed By: #### 9 5422-2 ####[facility] LABCLIA [id number] [place] [address] [place] FLUBV RNA MIGDALIA+probe Ql (Unsp spec) Negative Normal Negative for Influenza B by RT-PCR [facility] Comment on above: Order Comment: Speci men Type: SWAB OF INTERNAL NOSEOrdering Facility: [facility] Address: [address] [place] [address] Performed By: #### 9 5422-2 ####[facility] LABCLIA [id number] [place] [address] [place] SARS-CoV-2 (COVID-19) RNA MIGDALIA+probe Ql (Resp) SARS-CoV-2 (Agent of COVID-19) Not Detected by RT-PCR or equivalent method. Normal Not Detected [facility] Comment on above: Order Comment: Speci men Type: SWAB OF INTERNAL NOSEOrdering Facility: [facility] Address: [address] [place] [address] Result Comment: emily s [id number] [employer] (TORY)_EUA This test was developed and its performance characteristics determined by [facility]'s [facility] [place]. This test has been authorized by FDA under an Emergency Use Authorization (EUA). This test has been validated in accordance with the FDA's Guidance Document Policy for Diagnostics Testing in Laboratories Certified to Perform High Complexity Testing under CLIA prior to Emergency use Authorization for Coronavirus Disease 2019 during the Public Health Emergency issued on April 10, 2019. Test performed by [facility], [facility] [place], [address] [address]. Performed By: #### 9 5422-2 ####[facility] LABCLIA [id number] [facility] [id number] [facility] CNOVon 05-16-2021 CNOV Office Visit (UCWSTR ) NORMA FAUSTIN ([id number]) 4 F Date Time Provider Department 05/16/21 4:30 PM BRADLY VERNON [facility] During your visit today, we recorded the following information about you: Temperature Pulse Respiration Blood pressure 98.5 degrees 70/minute 21/minute 120/78 Weight 75.6 kg Bradly Vernon APRN.EDITING COMPUTER PUBLISHER 05/16/2021 5:14 PM Addendum Subjective HPI Nontoxic-appearing female presents urgent care chief complaint constipation. Duration of symptoms 1 week. Associated symptoms abdominal pain small bowel movements and nausea. Patient was seen here yesterday. X-ray obtained. Moderate amount of stool burden noted. Patient was instructed to increase water MiraLAX. Has taken MiraLAX and had increased water intake slightly. Has not noticed a reduction abdominal pain. Patient states she does have pain with bowel movements. Has pain with wiping still way from rectum. Denies any vomiting. History of constipation. Denies any fever body aches chills productive cough chest pain shortness of breath pleuritic pain hemoptysis or change in bowel or bladder habits. Past medical history prescription medication use allergies reviewed. Denies chance . .Patient presents with: Constipation: stomach pain and nausea x 1 week PAST MEDICAL HISTORY Diagnosis Date - ADHD (attention deficit hyperactivity disorder) - Irregular periods -2015 Age 14 - PMH - PAST MEDICAL HISTORY OF 11/23/12 Color Vision - Normal PAST SURGICAL HISTORY Procedure Laterality Date - BACK SURGERY HX 2010 Tumor/ adrien removed - NONE ALLERGIES Patient has no known allergies. MEDICATIONS acetaminophen (TYLENOL) 325 mg cap Take by mouth. Lactobacillus acidophilus (PROBIOTIC) 10 billion cell cap Take by mouth. polyethylene glycol 3350 (MIRALAX) 17 gram/dose powder Constipation Brompheniramine-Pseudo eph-DM (BROMFED DM) 2-30-10 mg/5 mL syrup Take 5-10 ml po q6h prn Desogestrel-Ethinyl Estradiol (APRI) 0.15-0.03 mg per tablet Take 1 tablet by mouth once daily. albuterol HFA (PROAIR HFA) 90 mcg/actuation inhaler Inhale 2 Puffs as instructed every 6 hours as needed. FAMILY HISTORY Problem Relation Age of Onset - other (Robins-Miguel Syndrome) Father diagnosed 01/2016 - None Paternal Grandfather Social History Tobacco Use - Smoking status: Passive Smoke Exposure - Never Smoker - Smokeless tobacco: Never Used - Tobacco comment: Mother smokes outside of the home Vaping Use - Vaping Use: Former Substance Use Topics - Alcohol use: No - Drug use: No BP 120/78 Pulse 70 Temp 36.9 ?C (98.5 ?F) Resp 21 Wt 75.6 kg (166 lb 9.6 oz) LMP 04/26/2021 SpO2 98% Review of Systems Constitutional: Negative for chills, fever and malaise/fatigue. HENT: Negative for congestion, ear discharge, ear pain, sinus pain and sore throat. Eyes: Negative for blurred vision, pain, discharge and redness. Respiratory: Negative for cough, hemoptysis, sputum production, shortness of breath, wheezing and stridor. Cardiovascular: Negative for chest pain. Gastrointestinal: Positive for abdominal pain, constipation and nausea. Negative for blood in stool, diarrhea, melena and vomiting. Musculoskeletal: Negative for myalgias. Skin: Negative for itching and rash. Neurological: Negative for dizziness and headaches. Objective Physical Exam Exam conducted with a wide area network administrator present. Constitutional: General: She is not in acute distress. Appearance: She is not diaphoretic. HENT: Head: Normocephalic. Mouth/Throat: Mouth: Mucous membranes are moist. Pharynx: Oropharynx is clear. No oropharyngeal exudate or posterior oropharyngeal erythema. Eyes: Conjunctiva/sclera: Conjunctivae normal. Pupils: Pupils are equal, round, and reactive to light. Cardiovascular: Rate and Rhythm: Normal rate and regular rhythm. Heart sounds: Normal heart sounds. Pulmonary: Effort: Pulmonary effort is normal. No tachypnea, accessory muscle usage or respiratory distress. Breath sounds: Normal breath sounds. No stridor. Abdominal: General: Bowel sounds are normal. Palpations: Abdomen is soft. Tenderness: There is generalized abdominal tenderness. There is no guarding or rebound. Genitourinary: Comments: No hemorrhoids lesions or rashes noted on rectal examination. Musculoskeletal: Cervical back: Normal range of motion and neck supple. No rigidity or tenderness. Lymphadenopathy: Cervical: No cervical adenopathy. Skin: General: Skin is warm and dry. Neurological: Mental Status: She is alert and oriented to person, place, and time. ASSESSMENT/PLAN: 1. Generalized abdominal pain - ICD9: 789.07, ICD10: R10.84 Patient diagnosed with generalized abdominal pain. Low suspicion for peritonitis. Patient had no rebound or guarding. We will continue increasing water and MiraLAX. Will use suppositori (more content not included)... Normal [facility] CNOVon 05-15-2021 CNOV Office Visit (UCWSTR ) NORMA FAUSTIN ([id number]) 4 F Date Time Provider Department 05/15/21 1:00 PM ANGELITA GHOTRA [facility] During your visit today, we recorded the following information about you: Temperature Pulse Respiration Blood pressure 98.1 degrees 66/minute 18/minute 118/72 Weight Last Period 74.8 kg 04/26/21 Angelita Ghotra APRN.EDITING COMPUTER PUBLISHER 05/15/2021 2:04 PM Signed Subjective Patient came in with complaints of abdominl pain for a week and constipation for at least five days. patient is taking over the counter gummies for digestion but not helping. No sure if she is taking in adequate water. Has never had this issue before. It is causing nausea but has not puked. Denies fever or any other symptoms at this time. The history is provided by the patient. No records management associate was used. Constipation Review of Systems Constitutional: Negative. Gastrointestinal: Positive for constipation. Skin: Negative. Objective Physical Exam Constitutional: Appearance: Normal appearance. Cardiovascular: Rate and Rhythm: Normal rate and regular rhythm. Heart sounds: Normal heart sounds. Pulmonary: Effort: Pulmonary effort is normal. Breath sounds: Normal breath sounds. Abdominal: General: Abdomen is flat. Bowel sounds are decreased. Palpations: Abdomen is soft. Comments: Patient did feel uncomfortable when the bottom was palpated see marked area. But no acute symptoms noted. Neurological: Mental Status: She is alert. PAST MEDICAL HISTORY Diagnosis Date - ADHD (attention deficit hyperactivity disorder) - Irregular periods -2015 Age 14 - PMH - PAST MEDICAL HISTORY OF 01/03/12 Color Vision - Normal PAST SURGICAL HISTORY Procedure Laterality Date - BACK SURGERY HX 2010 Tumor/ adrien removed - NONE ALLERGIES Patient has no known allergies. MEDICATIONS acetaminophen (TYLENOL) 325 mg cap Take by mouth. Lactobacillus acidophilus (PROBIOTIC) 10 billion cell cap Take by mouth. Brompheniramine-Pseudo eph-DM (BROMFED DM) 2-30-10 mg/5 mL syrup Take 5-10 ml po q6h prn Desogestrel-Ethinyl Estradiol (APRI) 0.15-0.03 mg per tablet Take 1 tablet by mouth once daily. albuterol HFA (PROAIR HFA) 90 mcg/actuation inhaler Inhale 2 Puffs as instructed every 6 hours as needed. FAMILY HISTORY Problem Relation Age of Onset - other (Robins-Miguel Syndrome) Father diagnosed 01/2016 - None Paternal Grandfather Social History Tobacco Use - Smoking status: Passive Smoke Exposure - Never Smoker - Smokeless tobacco: Never Used - Tobacco comment: Mother smokes outside of the home Vaping Use - Vaping Use: Former Substance Use Topics - Alcohol use: No - Drug use: No ASSESSMENT/PLAN: 1. Generalized abdominal pain - ICD9: 789.07, ICD10: R10.84 - XR ABDOMEN 1V SUPINE FINDINGS: ? Nonobstructive bowel gas pattern. Moderately large stool burden. ? IMPRESSION IMPRESSION: ? Nonobstructive bowel gas pattern. ? Moderately large stool burden. ? ? ?Road Boss: RAMONA Transcribe Date/Time: May 15 2021 1:39P ? Dictated by : MD Morgan HEADLEY this time patient being placed on miralax daily until she has soft stool. Asked to increase her water intake. patient was also instructed if symptoms get worse or she does not produce a bowel movement in the next day to follow up for reevaluation. patient understood care plan and is accepting of care plan. KAROLINA Kaiser APRN.CNP 05/15/2021 1:56 PM Signed Diagnosis: Assessment Constipation What is constipation? Constipation is infrequent or uncomfortable bowel movements. Often the bowel movements are small, hard, or dry. How does it occur? You may have constipation because: You wait too long to have bowel movements. You do not drink enough fluids. You overuse laxatives. You do not eat enough fiber. You don't have enough physical activity. You are taking a medicine that has a side effect of constipation. Some medical conditions and diseases can also cause constipation. What are the symptoms? Symptoms may include having: small bowel movements hard, dry bowel movements uncomfortable or painful bowel movements that are hard to pass a longer time than usual between bowel movements. Normal frequencies for bowel movements may vary from 3 times a day to once every 3 days, depending on the person. What's important is whether there is a change in what has been normal for you. How is it treated? To ease your constipation: Do not delay bowel movements. Make sure that you go to the bathroom whenever you feel that you need to go. Drink more fluids. Increase the amount of fiber in your diet. Increase your physical activity. Ask your health care provider if any medicines you are taking may be causing constipation. Tell your health care provider if: You start havi (more content not included)... Normal [facility] XR ABDOMEN 1V SUPINEon 05-15 XR ABDOMEN 1V SUPINE * * *Final Report* * * DATE OF EXAM: May 15 2021 1:30PM WOX [id number] - XR ABDOMEN 1V SUPINE / PROCEDURE REASON: Generalized abdominal pain * * * * Physician Interpretation * * * * CLINICAL INDICATION: Abdominal pain TECHNIQUE: Supine frontal radiograph of the abdomen COMPARISON: None FINDINGS: Nonobstructive bowel gas pattern. Moderately large stool burden. IMPRESSION: Nonobstructive bowel gas pattern. Moderately large stool burden. Road Boss: [facility] Transcribe Date/Time: May 15 2021 1:39P Dictated by : NANCY SINGH MD This examination was interpreted and the report reviewed and electronically signed by: NANCY SINGH MD on May 15 2021 1:46PM EST [id number] Normal [facility] XR Abdomen Supine and Uprigh ton 05-15-2021 IMPRESSION: Nonobstructive bowel gas pattern. Moderately large stool burden. Road Boss: [facility] Transcribe Date/Time: May 15 2021 1:39P Dictated by : NANCY SINGH MD This examination was interpreted and the report reviewed and electronically signed by: NANCY SINGH MD on May 15 2021 1:46PM EST DIVISION OF RADIOLOGY * * *Final Report* * * DATE OF EXAM: May 15 2021 1:30PM WOX 5289 - XR ABDOMEN 1V SUPINE / PROCEDURE REASON: Generalized abdominal pain * * * * Physician Interpretation * * * * CLINICAL INDICATION: Abdominal pain TECHNIQUE: Supine frontal radiograph of the abdomen COMPARISON: None FINDINGS: Nonobstructive bowel gas pattern. Moderately large stool burden. DIVISION OF RADIOLOGY Provider, [facility] - 05/15/2021 * * *Final Report* * * DATE OF EXAM: May 15 2021 1:30PM WOX 5289 - XR ABDOMEN 1V SUPINE / PROCEDURE REASON: Generalized abdominal pain * * * * Physician Interpretation * * * * CLINICAL INDICATION: Abdominal pain TECHNIQUE: Supine frontal radiograph of the abdomen COMPARISON: None FINDINGS: Nonobstructive bowel gas pattern. Moderately large stool burden. IMPRESSION IMPRESSION: Nonobstructive bowel gas pattern. Moderately large stool burden. Road Boss: [facility] Transcribe Date/Time: May 15 2021 1:39P Dictated by : NANCY SINGH MD This examination was interpreted and the report reviewed and electronically signed by: NANCY SINGH MD on May 15 2021 1:46PM EST [facility] Radiology Study observation (narrative) [facility] XR Abdomen Supine and Uprigh tOrdered By: [facility] Provider on 05-15-2021 [facility] XR Chest PA and Lateralon IMPRESSION: No acute radiographic abnormality. Road Boss: RAMONA Transcribe Date/Time: Apr 20 2020 1:10P Dictated by : ANOOP ESCOBAR MD This examination was interpreted and the report reviewed and electronically signed by: ANOOP ESCOBAR MD on Apr 20 2020 1:11PM [facility] DIVISION OF RADIOLOGY * * *Final Report* * * DATE OF EXAM: Apr 20 2020 12:57PM WOX 5291 - XR CHEST 2V FRONTAL/LAT / PROCEDURE REASON: Suspected COVID-19 virus infection * * * * Physician Interpretation * * * * EXAMINATION: CHEST RADIOGRAPH (2 VIEW FRONTAL & LATERAL) CLINICAL HISTORY: Suspected COVID-19 virus infection MQ: XC2_6 EXAM DATE/TIME: 04/20/2020 12:57 PM COMPARISON: 04/15/2019 RESULT: Lines, tubes, and devices: None. Lungs and pleura: No consolidation. No pleural effusion. No pneumothorax. Cardiomediastinal silhouette: Normal cardiomediastinal silhouette. Bones and soft tissues: Unremarkable. DIVISION OF RADIOLOGY Provider, [facility] - 04/20/2020 * * *Final Report* * * DATE OF EXAM: Apr 20 2020 12:57PM WOX 5291 - XR CHEST 2V FRONTAL/LAT / PROCEDURE REASON: Suspected COVID-19 virus infection * * * * Physician Interpretation * * * * EXAMINATION: CHEST RADIOGRAPH (2 VIEW FRONTAL & LATERAL) CLINICAL HISTORY: Suspected COVID-19 virus infection MQ: XC2_6 EXAM DATE/TIME: 04/20/2020 12:57 PM COMPARISON: 04/15/2019 RESULT: Lines, tubes, and devices: None. Lungs and pleura: No consolidation. No pleural effusion. No pneumothorax. Cardiomediastinal silhouette: Normal cardiomediastinal silhouette. Bones and soft tissues: Unremarkable. IMPRESSION IMPRESSION: No acute radiographic abnormality. Road Boss: RAMONA Transcribe Date/Time: Apr 20 2020 1:10P Dictated by : ANOOP ESCOBAR MD This examination was interpreted and the report reviewed and electronically signed by: ANOOP ESCOBAR MD on Apr 20 2020 1:11PM EST [facility] Radiology Study observation (narrative) [facility] XR Chest PA and LateralOrder ed By: [facility] Provider on 04-20-2020 [facility] EMERGENCY REPORTon 9 EMERGENCY REPORT [facility] EMERGENCY ROOM REPORT NAME ACCOUNT SEX AGE ADMIT DISCHARGE PT MED. RECORD# NUMBER DATE DATE TYPE CAPO, [id number] F 17 09/22/18 09/22/18 3 NORMA Smalls [id number] ROOM: ER DATE OF : 2000 DICTATING PHYSICIAN: Michael Elliott CHIEF COMPLAINT/HISTORY OF PRESENT ILLNESS: A 17-year-old white female complaining of left thumb pain. Around 7:30 p.m. tonight she hyperextended her left thumb, blocking a soccer ball that was kicked to the goal. The ball bent her finger back and she has had pain ever since. Pain is a 9 on a severity scale of 1 to 10. Describes the pain as sharp in nature, worse with movement. The pain was keeping her from sleeping tonight, so that is why Mom brought her in to have it evaluated. She is usually pretty good about pain. Denies any numbness or tingling. PAST MEDICAL HISTORY: Denied. PAST SURGICAL HISTORY: She has had a previous adrien removed when she was 8 years of age. ALLERGIES: No known drug allergies. SOCIAL HISTORY: She is not a smoker. Denies any use of alcohol or illicit drugs. Lives at home with family. REVIEW OF SYSTEMS: Denies any chest pain, shortness of breath, cough, sputum, wheezing, abdominal pain, nausea, vomiting, diarrhea, constipation, melena, hematochezia, headache, numbness, unsteady gait, weakness, neck or back pain, but does complain of left thumb pain with associated swelling. Further review of systems negative. PHYSICAL EXAMINATION: Vital signs: Blood pressure 118/72, pulse 78, respirations 18, temperature 99.1, pulse oximetry 98% on room air. Weight 150 pounds. The patient is alert and oriented x3. She does appear in some mild distress secondary to left thumb pain, but she is pleasant, cooperative. HEENT: Head appears atraumatic. Pupils are equal and reactive to light. Red reflex intact bilaterally. Extraocular muscles intact. No conjunctival injection. No scleral icterus or lid edema. Nose exhibits no rhinorrhea or epistaxis. Mouth: Mucous membranes are moist. Teeth intact. Neck is supple. Trachea is midline. No JVD or lymphadenopathy. No posterior cervical tenderness. No nuchal rigidity. Lungs are clear to auscultation in all lung white. No adventitious sounds are noted. No accessory muscle use noted. CVS: Heart rate and rhythm is regular without murmur. Abdomen is soft and nontender with normoactive bowel sounds x4 quadrants. No guarding or rigidity. Back exhibits no midline or paraspinal region tenderness. No Page 1 of 2 NORMA FAUSTIN Emergency Room Report increased paraspinal muscle rigidity. Negative Maverick sign. Extremities: I do note a lot of swelling and tenderness over the volar aspect of the left hand, over the thenar eminence. She does have some palpable tenderness over the proximal phalanx region of the left thumb as well. She is able to flex and extend the left thumb, but there is decreased range of motion due to pain with movement, but I note no crepitance. She has good sensation to light touch all digits of the left hand including the thumb. Capillary refill less than 2 seconds. No skin abrasions or lacerations. No ecchymosis. Good intact left radial pulse. Neurologic examination shows the patient to be alert and oriented x4. No motor or sensory deficits are noted. Normal speech. DIAGNOSTIC DATA: X-rays obtained of the left hand did not show any evidence of any fracture. EMERGENCY DEPARTMENT COURSE AND TREATMENT: Presently I do have an x-ray of the left hand ordered and then will reevaluate. I did explain to the patient that since she was having so much pain I felt at this point it would be better just to put her in a splint and write her off soccer the rest of this week and then will just kind of see how this does. She clinically does not look like she is in a lot of pain, but she states that the pain kept her from sleeping tonight, so I did give her 1 [place] here. I wrote her a prescription for ibuprofen 600 mg 1 p.o. every 8 hours as needed for pain. I did place her in a thumb spica splint and advised her to keep that on at all times until she can follow up with her family doctor. If her symptoms get worse or any other problems develop, return here to the emergency department. Patient was discharged in a clinically stable condition. Nurse notes reviewed. They see Dr. Delgadillo as a family doctor. I did ask them to follow up with Dr. Delgadillo this coming week. DIAGNOSIS: Ligamentous sprain to the left thumb. Dictated By: Michael Elliott DO 09/22/18 02:58 JOB #: [id number] Transcribed By: león 09/22/18 18:36 Electronically signed by: E-Sign: Dr. Michael Elliott D.O. 09/23/18 09:09 Page 2 of 2 NORMA FAUSTIN Emergency Room Report Normal [facility] HAND LT MIN 3 VIEWSon 2018 HAND LT MIN 3 VIEWS [place] [id number] Patient: NORMA FAUSTIN. Phone#: : 2000 Age: 17 Gender: F Pt. Type: ER Account: [id number] Location: [facility] Ordering: MICHAEL ELLIOTT Exam Date: 09/22/2018/2:30 Family Phys: FRANCISCO DELGADILLO Charge Code: [id number] Physician: [place] Order #: [id number] DLP Dose#: PROCEDURE: X-RAY HAND LT COMPLETE 3 VIEWS COMPARISON: None. INDICATIONS: Trauma. FINDINGS: BONES: Normal. No significant arthropathy or acute abnormality. SOFT TISSUES: Negative. No visible soft tissue swelling. EFFUSION: None visible. OTHER: Negative. CONCLUSION: No acute disease. Dictated by: Fela Denton MD on 09/22/2018 at 9:28 Approved by: Fela Denton MD on 09/22/2018 at 9:28 Normal [facility] Vital Signs Date Time Vital Sign Value Performing Clinician Facility 03-19-2022 14:26-0500 Body temperature 97.5 [degF] Angelina Silveira APRN.EDITING COMPUTER PUBLISHER Work Phone: [facility] 03-19-2022 14:26-0500 Body weight 84.37 kg Angelina Silveira APRN.CNP Work Phone: [facility] 03-19-2022 14:26-0500 Diastolic blood pressure 72 mm[Hg] Angelina Praisler-Wood PRACTICE DIRECTOR.EDITING COMPUTER PUBLISHER Work Phone: [facility] 03-19-2022 14:26-0500 Heart rate 76 /min Angelina Praisler-Wood PRACTICE DIRECTOR.EDITING COMPUTER PUBLISHER Work Phone: [facility] 03-19-2022 14:26-0500 Respiratory rate 16 /min Angelina Praisler-Wood PRACTICE DIRECTOR.EDITING COMPUTER PUBLISHER Work Phone: [facility] 03-19-2022 14:26-0500 SaO2% (BldA) [Mass fraction] 98 % Angelina Praisler-Wood PRACTICE DIRECTOR.EDITING COMPUTER PUBLISHER Work Phone: [facility] 03-19-2022 14:26-0500 Systolic blood pressure 120 mm[Hg] Angelina Praisler-Wood PRACTICE DIRECTOR.EDITING COMPUTER PUBLISHER Work Phone: [facility] 02-19-2022 12:56-0500 Body temperature 98.71 [degF] Nighat Soliman PRACTICE DIRECTOR.EDITING COMPUTER PUBLISHER Work Phone: [facility] 02-19-2022 12:56-0500 Body weight 85.19 kg Nighat Soliman PRACTICE DIRECTOR.EDITING COMPUTER PUBLISHER Work Phone: [facility] 02-19-2022 12:56-0500 Diastolic blood pressure 66 mm[Hg] Nighat Soliman PRACTICE DIRECTOR.EDITING COMPUTER PUBLISHER Work Phone: [facility] 02-19-2022 12:56-0500 Heart rate 98 /min Nighat Soliman PRACTICE DIRECTOR.EDITING COMPUTER PUBLISHER Work Phone: [facility] 02-19-2022 12:56-0500 Respiratory rate 16 /min Nighat Soliman PRACTICE DIRECTOR.EDITING COMPUTER PUBLISHER Work Phone: [facility] 02-19-2022 12:56-0500 SaO2% (BldA) [Mass fraction] 99 % Nighat Soliman PRACTICE DIRECTOR.EDITING COMPUTER PUBLISHER Work Phone: [facility] 02-19-2022 12:56-0500 Systolic blood pressure 120 mm[Hg] Nighat Soliman PRACTICE DIRECTOR.EDITING COMPUTER PUBLISHER Work Phone: [facility] 12-12-2021 15:10-0400 Body temperature 98.71 [degF] [facility] PRACTICE DIRECTOR.EDITING COMPUTER PUBLISHER Work Phone: [facility] 12-12-2021 15:10-0400 [facility].EDITING COMPUTER PUBLISHER Work Phone: [facility] 12-12-2021 15:10-0400 Diastolic blood pressure 80 mm[Hg] [facility] PRACTICE DIRECTOR.EDITING COMPUTER PUBLISHER Work Phone: [facility] 12-12-2021 15:10-0400 Heart rate 75 /min Bradly Pendbury PRACTICE DIRECTOR.EDITING COMPUTER PUBLISHER Work Phone: [facility] 12-12-2021 15:10-0400 Respiratory rate 23 /min [facility] PRACTICE DIRECTOR.EDITING COMPUTER PUBLISHER Work Phone: [facility] 12-12-2021 15:10-0400 SaO2% (BldA) [Mass fraction] 99 % [facility] PRACTICE DIRECTOR.EDITING COMPUTER PUBLISHER Work Phone: [facility] 12-12-2021 15:10-0400 Systolic blood pressure 102 mm[Hg] [facility] PRACTICE DIRECTOR.EDITING COMPUTER PUBLISHER Work Phone: [facility] 11-28-2021 16:31-0400 Body temperature 98.01 [degF] Monie Patino PRACTICE DIRECTOR.EDITING COMPUTER PUBLISHER Work Phone: [facility] 11-28-2021 16:31-0400 Body weight 85 kg Monie Patino PRACTICE DIRECTOR.EDITING COMPUTER PUBLISHER Work Phone: [facility] 11-28-2021 16:31-0400 Diastolic blood pressure 80 mm[Hg] Monie Patino PRACTICE DIRECTOR.EDITING COMPUTER PUBLISHER Work Phone: [facility] 11-28-2021 16:31-0400 Heart rate 76 /min Monie Patino PRACTICE DIRECTOR.EDITING COMPUTER PUBLISHER Work Phone: [facility] 11-28-2021 16:31-0400 Respiratory rate 21 /min Monie Patino PRACTICE DIRECTOR.EDITING COMPUTER PUBLISHER Work Phone: [facility] 11-28-2021 16:31-0400 SaO2% (BldA) [Mass fraction] 99 % Monie Patino APRN.EDITING COMPUTER PUBLISHER Work Phone: [facility] 11-28-2021 16:31-0400 Systolic blood pressure 118 mm[Hg] Monie Patino APRN.EDITING COMPUTER PUBLISHER Work Phone: [facility] 11-18-2021 13:35-0400 Body temperature 98.49 [degF] Angelita Ghotra APRN.EDITING COMPUTER PUBLISHER Work Phone: [facility] 11-18-2021 13:35-0400 Body weight 85.37 kg Angelita Ghotra APRN.EDITING COMPUTER PUBLISHER Work Phone: [facility] 11-18-2021 13:35-0400 Diastolic blood pressure 80 mm[Hg] Angelita Ghotra APRN.EDITING COMPUTER PUBLISHER Work Phone: [facility] 11-18-2021 13:35-0400 Heart rate 78 /min Angelita Ghotra APRN.EDITING COMPUTER PUBLISHER Work Phone: [facility] 11-18-2021 13:35-0400 Respiratory rate 16 /min Angelita Ghotra APRN.EDITING COMPUTER PUBLISHER Work Phone: [facility] 11-18-2021 13:35-0400 SaO2% (BldA) [Mass fraction] 97 % Angelita Ghotra APRN.EDITING COMPUTER PUBLISHER Work Phone: [facility] 11-18-2021 13:35-0400 Systolic blood pressure 118 mm[Hg] Angelita Ghotra APRN.EDITING COMPUTER PUBLISHER Work Phone: [facility] 05-16-2021 17:49-0400 Body height 172.72 cm [facility] Work Phone: 05-16-2021 17:49-0400 Body mass index (BMI) [Ratio] 25 kg/m2 [facility] Work Phone: 05-16-2021 17:49-0400 Body temperature 97.1 [degF] [facility] Work Phone: 05-16-2021 17:49-0400 Body weight 74.84 kg [facility] Work Phone: 05-16-2021 17:49-0400 Diastolic blood pressure 64 mm[Hg] [facility] Work Phone: 05-16-2021 17:49-0400 Heart rate 15 /min [facility] Work Phone: 05-16-2021 17:49-0400 Respiratory rate 67 /min [facility] Work Phone: 05-16-2021 17:49-0400 SaO2% (BldA) [Mass fraction] 98 % [facility] Work Phone: 05-16-2021 17:49-0400 Systolic blood pressure 139 mm[Hg] [facility] Work Phone: 05-16-2021 16:26-0400 Body temperature 98.49 [degF] Bradly Janeen PRACTICE DIRECTOR.EDITING COMPUTER PUBLISHER Work Phone: [facility] 05-16-2021 16:26-0400 Body weight 75.57 kg Bradly Vernon PRACTICE DIRECTOR.EDITING COMPUTER PUBLISHER Work Phone: [facility] 05-16-2021 16:26-0400 Diastolic blood pressure 78 mm[Hg] Bradly Vernon PRACTICE DIRECTOR.EDITING COMPUTER PUBLISHER Work Phone: [facility] 05-16-2021 16:26-0400 Heart rate 70 /min Bradly Pendgildardo PRACTICE DIRECTOR.EDITING COMPUTER PUBLISHER Work Phone: [facility] 05-16-2021 16:26-0400 Respiratory rate 21 /min Bradly Pendlebury PRACTICE DIRECTOR.EDITING COMPUTER PUBLISHER Work Phone: [facility] 05-16-2021 16:26-0400 SaO2% (BldA) [Mass fraction] 98 % Bradly Pendlebury PRACTICE DIRECTOR.EDITING COMPUTER PUBLISHER Work Phone: [facility] 05-16-2021 16:26-0400 Systolic blood pressure 120 mm[Hg] Bradly Pendlebury PRACTICE DIRECTOR.EDITING COMPUTER PUBLISHER Work Phone: [facility] 05-15-2021 13:05-0400 Body temperature 98.1 [degF] Angelita Ghotra APRN.EDITING COMPUTER PUBLISHER Work Phone: [facility] 05-15-2021 13:05-0400 Body weight 74.84 kg Angelita Ghotra APRN.EDITING COMPUTER PUBLISHER Work Phone: [facility] 05-15-2021 13:05-0400 Diastolic blood pressure 72 mm[Hg] Angelita Ghotra APRN.EDITING COMPUTER PUBLISHER Work Phone: [facility] 05-15-2021 13:05-0400 Heart rate 66 /min Angelita Ghotra APRN.EDITING COMPUTER PUBLISHER Work Phone: [facility] 05-15-2021 13:05-0400 Respiratory rate 18 /min Angelita Ghotra APRN.EDITING COMPUTER PUBLISHER Work Phone: [facility] 05-15-2021 13:05-0400 SaO2% (BldA) [Mass fraction] 99 % Angelita Ghotra APRN.EDITING COMPUTER PUBLISHER Work Phone: [facility] 05-15-2021 13:05-0400 Systolic blood pressure 118 mm[Hg] Angelita Ghotra APRN.EDITING COMPUTER PUBLISHER Work Phone: [facility] Encounters Encounter Date Encounter Type Care Provider Facility Start: 09-08-2022 End: 09-08-2022 Emergency department patient visit Srinivasa Art Facility:[facility] Start: 03-19-2022 End: 03-19-2022 ambulatory FRANCISCO David LEONA Facility:[facility] Start: 03-19-2022 End: 03-19-2022 Patient encounter procedure Angelina Silveira PRACTICE DIRECTOR.EDITING COMPUTER PUBLISHER Work Phone: [facility] Comment on above: Sore throat (Primary Dx); Viral URI with cough Start: 02-19-2022 End: 02-19-2022 ambulatory FRANCISCO DELGADILLO Facility:[facility] Start: 02-19-2022 End: 02-19-2022 Patient encounter procedure Nighat Soliman PRACTICE DIRECTOR.EDITING COMPUTER PUBLISHER Work Phone: [facility] Comment on above: Pharyngitis, unspeci fied etiology (Primary Dx); Exposure to COVID-19 virus; URI, acute Start: 12-13-2021 Telephone encounter Angelita Ghotra APRN.EDITING COMPUTER PUBLISHER Work Phone: [facility] Comment on above: Results Start: 12-12-2021 End: 12-12-2021 ambulatory FRANCISCO DELGADILLO Facility:[facility] Start: 12-12-2021 End: 12-12-2021 Patient encounter procedure Bradly Vernon APRN.EDITING COMPUTER PUBLISHER Work Phone: [facility] Comment on above: Pharyngitis, unspeci fied etiology (Primary Dx); Fatigue, unspecified type; Viral illness Start: 11-28-2021 End: 11-28-2021 ambulatory FRANCISCO DELGADILLO Facility:[facility] Start: 11-28-2021 End: 11-28-2021 Patient encounter procedure Monie Patino APRN.EDITING COMPUTER PUBLISHER Work Phone: [facility] Comment on above: Hordeolum externum o f left upper eyelid (Primary Dx) Start: 11-18-2021 End: 11-18-2021 ambulatory FRANCISCO DELGADILLO Facility:[facility] Start: 11-18-2021 End: 11-18-2021 Patient encounter procedure Angelita Ghotra APRN.EDITING COMPUTER PUBLISHER Work Phone: [facility] Comment on above: Infection (Primary D x) Start: 10-24-2021 Telephone encounter Angelita Ghotra APRN.EDITING COMPUTER PUBLISHER Work Phone: [facility] Comment on above: Results Start: 10-23-2021 End: 10-23-2021 ambulatory FRANCISCO DELGADILLO Facility:[facility] Start: 05-16-2021 End: 05-16-2021 ambulatory FRANCISCO David [facility] Facility:[facility] Start: 05-16-2021 End: 05-16-2021 Emergency department patient visit [facility] Start: 05-16-2021 End: 05-16-2021 Patient encounter procedure Bradly Vernon APRN.EDITING COMPUTER PUBLISHER Work Phone: [facility] Comment on above: Generalized abdomina l pain (Primary Dx) Start: 05-15-2021 End: 05-15-2021 ambulatory FRANCISCO DELGADILLO Facility:[facility] Start: 05-15-2021 End: 05-15-2021 Subsequent hospital visit by physician Christos [facility] Work Phone: Radiology Comment on above: Generalized abdomina l pain [R10.84] Start: 05-15-2021 End: 05-15-2021 Patient encounter procedure Angelita Ghotra APRN.EDITING COMPUTER PUBLISHER Work Phone: [facility] Comment on above: Generalized abdomina l pain (Primary Dx) Start: 04-20-2020 End: 04-20-2020 Subsequent hospital visit by physician Christos [facility] Work Phone: Radiology Comment on above: Suspected COVID-19 v irus infection [Z20.822] Start: 09-22-2018 End: 09-22-2018 Emergency department patient visit MICHAEL THOMPSON [facility] Procedures Date Procedure Procedure Detail Performing Clinician Start: 03-19-2022 STREP A MOLECULAR (POC) Arelis Santos PA-C Work Phone: Start: 02-19-2022 STREP A MOLECULAR (POC) Jeremiah Restrepo APRN.CNP Work Phone: Start: 12-12-2021 STREP A MOLECULAR (POC) Bradly Vernon APRN.EDITING COMPUTER PUBLISHER Work Phone: Start: 05-15-2021 Radiologic exam abdo men 1 view Angelita Ghotar APRN.EDITING COMPUTER PUBLISHER Work Phone: Start: 04-20-2020 Radiologic exam ches t 2 views Bradly Vernon APRN.EDITING COMPUTER PUBLISHER Work Phone: Start: 05-30-2016 Adult depression screening assessment Angelita Ghotra APRN.EDITING COMPUTER PUBLISHER Work Phone: Plan of Treatment Date Care Activity Detail Author Start: 05-16-2024 Urine microalbumin profile [facility] Start: 10-13-2023 Screening for malign ant neoplasm of cervix Cervical Cancer Screening [facility] Start: 2023 Covid-19 Vaccine ( season) Covid-19 Vaccine ( season) [facility] Start: 2023 Influenza vaccination Influenza Vacc ine (#1) [facility] Start: 02-19-2022 End: 03-05-2022 Influenza virus A and B RNA and SARS-CoV-2 (COVID-19) N gene panel - Respiratory specimen by MIGDALIA with probe detection [facility] Work Phone: Comment on above: Expected: 02/19/2022 , Expires: 03/05/2022 Start: 02-10-2022 DEPRESSION ASSESSMENT DEPRESSION ASS ESSMENT [facility] Start: 12-12-2021 End: 02-11-2022 Heterophile Ab [Presence] in Serum by Latex agglutination MONOTEST, INFECTIOUS MONO Lab Routine Pharyngitis, unspecified etiology Fatigue, unspecified type Expected: 12/12/2021, Expires: 02/11/2022 [facility] Work Phone: Comment on above: Expected: 12/12/2021 , Expires: 02/11/2022 Start: 12-12-2021 End: 12-26-2021 Influenza virus A and B RNA and SARS-CoV-2 (COVID-19) N gene panel - Respiratory specimen by MIGDALIA with probe detection [facility] Work Phone: Comment on above: Expected: 12/12/2021 , Expires: 12/26/2021 Start: 11-14-2021 CHLAMYDIA SCREENING (18-24) CHLAMYDIA SCREENING (18-24) [facility] Start: 11-14-2021 GC (GONORRHEA) SCREE CHEYANNE (18-24) GC (GONORRHEA) SCREENING (18-24) [facility] Start: 11-14-2021 Screening for Chlamy dre trachomatis Chlamydia Screening () [facility] Start: 10-11-2021 Influenza vaccination C [facility] Start: 07-02-2021 COVID-19 VACCINE (3 - Booster for Pfizer series) COVID-19 VACCINE (3 - Booster for Pfizer series) [facility] Start: 03-29-2021 COVID-19 VACCINE (3 - Booster for Pfizer series) COVID-19 VACCINE (3 - Booster for Pfizer series) [facility] Start: 02-10-2021 DEPRESSION ASSESSMENT DEPRESSION ASS ESSMENT [facility] Start: 2020 Anxiety Screening Anxiety Screening [facility] Start: 2020 Depression Screening Depression Scre ening [facility] Start: 2020 HEPATITIS C SCREENING HEPATITIS C [facility] Start: 2020 Hepatitis C screening Hepatitis C [facility] Start: 2020 HIV SCREENING HIV SCREENING [facility] Start: 2020 HIV screening HIV Screening [facility] Start: 2018 Meningococcal B Vacc ine: Consider Based On Risk (1 of 2 - Patient Seeks Protection) Meningococcal B Vaccine: Consider Based On Risk (1 of 2 - Patient Seeks Protection) [facility] Start: 2018 MENINGOCOCCAL CONJUG ATE (2 - 2-dose series) MENINGOCOCCAL CONJUGATE (2 - 2-dose series) [facility] Start: 05-30-2017 Adult depression screening assessment DEPRESSION SCREENING [facility] Start: 2016 PEDS TO ADULT TRANSI TION ANNUAL ASSESSMENT PEDS TO ADULT TRANSITION ANNUAL ASSESSMENT [facility] Start: 2014 PEDS TO ADULT TRANSI TION INITIAL DISCUSSION PEDS TO ADULT TRANSITION INITIAL DISCUSSION [facility] Start: 2012 MENINGOCOCCAL B: Consider based on risk (1 of 2 - Risk Bexsero 2-dose series) MENINGOCOCCAL B: Consider based on risk (1 of 2 - Risk Bexsero 2-dose series) [facility] Patient Education ED Constipation (Adult) [facility] Work Phone: Patient referral [facility] Work Phone: Immunizations Immunization Date Immunization Notes Care Provider Favio martinez 04-24-2015 human papilloma viru s vaccine, quadrivalent Angelita Ghotra APRN.EDITING COMPUTER PUBLISHER Work Phone: [facility] 09-01-2014 human papilloma viru s vaccine, quadrivalent Angelita Ghotra PRACTICE DIRECTOR.EDITING COMPUTER PUBLISHER Work Phone: [facility] 05-16-2014 human papilloma viru s vaccine, quadrivalent Angelita Ghotra PRACTICE DIRECTOR.EDITING COMPUTER PUBLISHER Work Phone: [facility] 05-16-2014 meningococcal polysaccharide (groups A, C, Y and W-135) diphtheria toxoid conjugate vaccine (MCV4P) Angelita Ghotra APRN.[facility] Work Phone: [facility] 05-16-2014 tetanus toxoid, redu klever diphtheria toxoid, and acellular pertussis vaccine, adsorbed Angelita Ghotra APRN.EDITING COMPUTER PUBLISHER Work Phone: [facility] 01-03-2012 influenza virus vacc ine, live, attenuated, for intranasal use Angelita Ghotra APRN.[facility] Work Phone: [facility] 01-03-2012 influenza virus vacc ine, unspecified formulation Xr [facility] Work Phone: [facility] 08-07-2010 hepatitis A vaccine, unspecified formulation Angelita Ghotra APRN.[facility] Work Phone: [facility] Work Phone: 06-03-2007 diphtheria, tetanus toxoids and acellular pertussis vaccine Angelita Ghotra APRN.[facility] Work Phone: [facility] Work Phone: 06-03-2007 hepatitis A vaccine, unspecified formulation Angelita Ghotra APRN.[facility] Work Phone: [facility] Work Phone: 06-03-2007 measles, mumps, rube lla, and varicella virus vaccine Angelita Ghotra APRN.[facility] Work Phone: [facility] Work Phone: 06-03-2007 poliovirus vaccine, inactivated Angelita Ghotra APRN.EDITING COMPUTER PUBLISHER Work Phone: [facility] Work Phone: 12-18-2005 influenza virus vacc ine, unspecified formulation Angelita Ghotra APRN.EDITING COMPUTER PUBLISHER Work Phone: [facility] Work Phone: 07-19-2005 diphtheria, tetanus toxoids and acellular pertussis vaccine Angelita Ghotra APRN.[facility] Work Phone: [facility] Work Phone: 11-05-2004 diphtheria, tetanus toxoids and acellular pertussis vaccine Angelita Ghotra APRN.[facility] Work Phone: [facility] Work Phone: 11-05-2004 haemophilus influenz ae type b conjugate and Hepatitis B vaccine Angelita Ghotra APRN.[facility] Work Phone: [facility] Work Phone: 11-05-2004 pneumococcal conjuga te vaccine, 7 valent Angelita Ghotra APRN.[facility] Work Phone: [facility] Work Phone: 11-05-2004 poliovirus vaccine, inactivated Angelita Ghotra APRN.[facility] Work Phone: [facility] Work Phone: 11-05-2004 varicella virus vaccine Shona Ghotra APRN.[facility] Work Phone: [facility] Work Phone: 02-13-2004 hepatitis B vaccine, pediatric or pediatric/adolescent dosage Angelita Ghotra APRN.[facility] Work Phone: [facility] Work Phone: 02-13-2004 poliovirus vaccine, inactivated Angelita Ghotra APRN.[facility] Work Phone: [facility] Work Phone: 01-26-2004 diphtheria, tetanus toxoids and acellular pertussis vaccine Angelita Ghotra APRN.[facility] Work Phone: [facility] Work Phone: 01-26-2004 haemophilus influenz ae type b vaccine, PRP-D conjugate Angelita Ghotra APRN.[facility] Work Phone: [facility] Work Phone: 01-26-2004 measles, mumps and rubella virus vaccine Angelita Ghotra APRN.[facility] Work Phone: [facility] Work Phone: 01-26-2004 pneumococcal conjuga te vaccine, 7 valent Angelita Ghotra APRN.EDITING COMPUTER PUBLISHER Work Phone: [facility] Work Phone: 01-10-2003 diphtheria, tetanus toxoids and acellular pertussis vaccine Angelita Ghotra APRN.EDITING COMPUTER PUBLISHER Work Phone: [facility] Work Phone: 01-10-2003 haemophilus influenz ae type b vaccine, PRP-D conjugate Angelita Ghotra APRN.EDITING COMPUTER PUBLISHER Work Phone: [facility] Work Phone: 01-10-2003 pneumococcal conjuga te vaccine, 7 valent Angelita Ghotra APRN.EDITING COMPUTER PUBLISHER Work Phone: [facility] Work Phone: 01-10-2003 poliovirus vaccine, inactivated Angelita Ghotra APRN.EDITING COMPUTER PUBLISHER Work Phone: [facility] Work Phone: 2002 hepatitis B vaccine, pediatric or pediatric/adolescent dosage Angelita Ghotra APRN.[facility] Work Phone: [facility] Work Phone: Payers Date Payer Category Payer Self-pay [id number] 2022 Unknown [id number] 2018 Medicaid [employer] [facility] MEDICAID [id number] 2018-Present [phone] [address] [place] [address] Medicaid [id number] 2018 Medicaid [id number] 2018 Unknown [id number] 1984 Unknown [id number] Private Health Insurance [employer] [id number] Unknown [id number] Social History Date Type Detail Facility Start: 05-22-2017 End: 10-23-2021 Tobacco smoking status NHIS Never smoked tobacco [facility] Start: 04-20-2020 End: 05-15-2021 Alcohol intake Current non-drinker of alcohol (finding) [facility] Start: 2002 Sex Assigned At Not on file [facility] Start: 03-21-2020 End: 12-12-2021 Exposure to SARS-CoV-2 (event) Not sure [facility] Start: 05-16-2021 Tobacco smoking stat us NHIS Unknown if ever smoked [facility] Work Phone: Start: 07-02-2020 Non-smoker [facility] Work Phone: Start: 2002 Sex Assigned At Female [facility] Work Phone: History of tobacco use Passive smoker [facility] Start: 05-22-2017 End: 10-23-2021 Tobacco use and exposure Smokeless tobacco non-user [facility] Start: 10-23-2021 Tobacco Comment Mother smokes outside of the home [facility] Start: 01-16-2020 End: 05-16-2021 History of Social function [facility] Start: 01-16-2020 End: 05-16-2021 Tobacco use panel [facility] National Score (1-100), lower number is lower risk Not on file [facility] Clinical Notes 04-20-2020 to 03-19-2022 Angelina Silveira APRN.FARRUKH - 03/19/2022 2:51 PM ESTPatient Sammi Soliman APRN.CNP - 02/19/2022 1:04 PM ESTTelephone Encounter - Brandon Aponte LPN - 12/13/2021 8:55 AM EDT Note Date & Type Note Facility 03-19-2022 Note HNO ID: [id number] Author: Angelina Silveira APRN.CNP Service: ? Author Type: Nurse Practitioner Type: Progress Notes Filed: 03/19/2022 2:59 PM Note Text: Subjective Sinus Problem Associated symptoms include congestion, coughing and a sore throat. Pertinent negatives include no chills, fever or rash. Norma Faustin is a 21 year old female who presents with sinus drainage, cough, sore throat for the past 4 days. She had a fever the first day of the illness but that resolved. She has been taking Nyquil at home. Her boyfriend was sick recently. Review of Systems Constitutional: Negative for chills and fever. HENT: Positive for congestion and sore throat. Negative for ear pain. Respiratory: Positive for cough. Cardiovascular: Negative. Musculoskeletal: Negative. Skin: Negative for rash. BP 120/72 Pulse 76 Temp 36.4 ?C (97.5 ?F) Resp 16 Wt 84.4 kg (186 lb) LMP 02/02/2022 (Exact Date) SpO2 98% PAST MEDICAL HISTORY Diagnosis Date ADHD (attention deficit hyperactivity disorder) Irregular periods -2015 Age 14 PMH - PAST MEDICAL HISTORY OF 01/03/12 Color Vision - Normal PAST SURGICAL HISTORY Procedure Laterality Date BACK SURGERY HX 2010 Tumor/ adrien removed NONE ALLERGIES Patient has no known allergies. MEDICATIONS acetaminophen 325 mg cap Take by mouth. Lactobacillus acidophilus (PROBIOTIC) 10 billion cell cap Take by mouth. Vkbaynleihbsvvz-Gyewowvqx-WT (BROMFED DM) 2-30-10 mg/5 mL syrup Take 5-10 ml po q6h prn polyethylene glycol 3350 (MIRALAX) 17 gram/dose powder Constipation (Patient not taking: Reported on 11/28/2021) Desogestrel-Ethinyl Estradiol (APRI) 0.15-0.03 mg per tablet Take 1 tablet by mouth once daily. (Patient not taking: Reported on 03/19/2021 ) albuterol HFA (PROAIR HFA) 90 mcg/actuation inhaler Inhale 2 Puffs as instructed every 6 hours as needed. (Patient not taking: Reported on 11/14/2020 ) FAMILY HISTORY Problem Relation Age of Onset other (Robins-Miguel Syndrome) Father diagnosed 01/2016 None Paternal Grandfather Social History Tobacco Use Smoking status: Never Passive exposure: Yes Smokeless tobacco: Never Tobacco comments: Mother smokes outside of the home Vaping Use Vaping Use: Former Substance Use Topics Alcohol use: No Drug use: No Objective Physical Exam Vitals and nursing note reviewed. Constitutional: Appearance: Normal appearance. HENT: Right Ear: Tympanic membrane, ear canal and external ear normal. Left Ear: Tympanic membrane, ear canal and external ear normal. Nose: Congestion and rhinorrhea present. Mouth/Throat: Mouth: Mucous membranes are moist. Pharynx: Uvula midline. Posterior oropharyngeal erythema present. No oropharyngeal exudate. Cardiovascular: Rate and Rhythm: Normal rate and regular rhythm. Heart sounds: Normal heart sounds. Pulmonary: Effort: Pulmonary effort is normal. No respiratory distress. Breath sounds: Normal breath sounds. No wheezing or rales. Musculoskeletal: Cervical back: Neck supple. Lymphadenopathy: Cervical: No cervical adenopathy. Skin: General: Skin is warm and dry. Findings: No erythema or rash. Neurological: Mental Status: She is alert. ASSESSMENT/PLAN: 1. Sore throat - ICD9: 462, ICD10: J02.9 (primary diagnosis) - suspect viral - Alere Strep Test negative, no culture pending - Discussed supportive care treatment with fluids, rest and analgesia. - STREP A MOLECULAR (POC) 2. Viral URI with cough - ICD9: 465.9, ICD10: J06.9 - Discussed viral etiology and rationale for treatment. - Symptomatic treatment with prn analgesia - Supportive care with fluids and rest - BROMPHENIRAMINE-PSEUDOEPHEDRINE- DM 2 MG-30 MG-10 MG/5 ML ORAL SYRUP - offered COVID/flu testing, patient declined. - Follow-up with your PCP in 3-5 days if symptoms have not improved or sooner if symptoms worsen - Discussed red flags and need for immediate medical evaluation if any occur. - Discussed supportive care treatment with fluids, rest and analgesia. - Discussed expected course of illness Angelina Silveira APRN.[facility] 03-19-2022 History of Presen t illness Narrative Subjective Sinus Problem Associated symptoms include congestion, coughing and a sore throat. Pertinent negatives include no chills, fever or rash. Norma Faustin is a 21 year old female who presents with sinus drainage, cough, sore throat for the past 4 days. She had a fever the first day of the illness but that resolved. She has been taking Nyquil at home. Her boyfriend was sick recently. Review of Systems Constitutional: Negative for chills and fever. HENT: Positive for congestion and sore throat. Negative for ear pain. Respiratory: Positive for cough. Cardiovascular: Negative. Musculoskeletal: Negative. Skin: Negative for rash. BP 120/72 Pulse 76 Temp 36.4 C (97.5 F) Resp 16 Wt 84.4 kg (186 lb) LMP 02/02/2022 (Exact Date) SpO2 98% PAST MEDICAL HISTORY Diagnosis Date ADHD (attention deficit hyperactivity disorder) Irregular periods -2015 Age 14 PMH - PAST MEDICAL HISTORY OF 01/03/12 Color Vision - Normal PAST SURGICAL HISTORY Procedure Laterality Date BACK SURGERY HX 2010 Tumor/ adrien removed NONE ALLERGIES Patient has no known allergies. MEDICATIONS acetaminophen 325 mg cap Take by mouth. Lactobacillus acidophilus (PROBIOTIC) 10 billion cell cap Take by mouth. Glxjacupklfjjza-Uaoeehybt-FF (BROMFED DM) 2-30-10 mg/5 mL syrup Take 5-10 ml po q6h prn polyethylene glycol 3350 (MIRALAX) 17 gram/dose powder Constipation (Patient not taking: Reported on 11/28/2021) Desogestrel-Ethinyl Estradiol (APRI) 0.15-0.03 mg per tablet Take 1 tablet by mouth once daily. (Patient not taking: Reported on 03/19/2021 ) albuterol HFA (PROAIR HFA) 90 mcg/actuation inhaler Inhale 2 Puffs as instructed every 6 hours as needed. (Patient not taking: Reported on 11/14/2020 ) FAMILY HISTORY Problem Relation Age of Onset other (Robins-Miguel Syndrome) Father diagnosed 01/2016 None Paternal Grandfather Social History Tobacco Use Smoking status: Never Passive exposure: Yes Smokeless tobacco: Never Tobacco comments: Mother smokes outside of the home Vaping Use Vaping Use: Former Substance Use Topics Alcohol use: No Drug use: No Objective Physical Exam Vitals and nursing note reviewed. Constitutional: Appearance: Normal appearance. HENT: Right Ear: Tympanic membrane, ear canal and external ear normal. Left Ear: Tympanic membrane, ear canal and external ear normal. Nose: Congestion and rhinorrhea present. Mouth/Throat: Mouth: Mucous membranes are moist. Pharynx: Uvula midline. Posterior oropharyngeal erythema present. No oropharyngeal exudate. Cardiovascular: Rate and Rhythm: Normal rate and regular rhythm. Heart sounds: Normal heart sounds. Pulmonary: Effort: Pulmonary effort is normal. No respiratory distress. Breath sounds: Normal breath sounds. No wheezing or rales. Musculoskeletal: Cervical back: Neck supple. Lymphadenopathy: Cervical: No cervical adenopathy. Skin: General: Skin is warm and dry. Findings: No erythema or rash. Neurological: Mental Status: She is alert. ASSESSMENT/PLAN: 1. Sore throat - ICD9: 462, ICD10: J02.9 (primary diagnosis) - suspect viral - Alere Strep Test negative, no culture pending - Discussed supportive care treatment with fluids, rest and analgesia. - STREP A MOLECULAR (POC) 2. Viral URI with cough - ICD9: 465.9, ICD10: J06.9 - Discussed viral etiology and rationale for treatment. - Symptomatic treatment with prn analgesia - Supportive care with fluids and rest - BROMPHENIRAMINE-PSEUDOEPHEDRINE- DM 2 MG-30 MG-10 MG/5 ML ORAL SYRUP - offered COVID/flu testing, patient declined. - Follow-up with your PCP in 3-5 days if symptoms have not improved or sooner if symptoms worsen - Discussed red flags and need for immediate medical evaluation if any occur. - Discussed supportive care treatment with fluids, rest and analgesia. - Discussed expected course of illness Angelina Silveira APRN.EDITING COMPUTER PUBLISHER documented in this encounter [facility] 03-19-2022 Instructions Angelina Silveira APRN.FARRUKH - 03/19/2022 2:51 PM EST ASSESSMENT/PLAN: 1. Sore throat - ICD9: 462, ICD10: J02.9 (primary diagnosis) - suspect viral - Alere Strep Test negative, no culture pending - Discussed supportive care treatment with fluids, rest and analgesia. - STREP A MOLECULAR (POC) 2. Viral URI with cough - ICD9: 465.9, ICD10: J06.9 - Discussed viral etiology and rationale for treatment. - Symptomatic treatment with prn analgesia - Supportive care with fluids and rest - BROMPHENIRAMINE-PSEUDOEPHEDRINE- DM 2 MG-30 MG-10 MG/5 ML ORAL SYRUP - offered COVID/flu testing, patient declined. - Follow-up with your PCP in 3-5 days if symptoms have not improved or sooner if symptoms worsen - Discussed red flags and need for immediate medical evaluation if any occur. - Discussed supportive care treatment with fluids, rest and analgesia. - Discussed expected course of illness Angelina Silveira APRN.FARRUKH Treatment for Viral Upper Respiratory Tract Infections Your body will kill off the virus by itself. Additionally, you can prime your body's immune system. This may help you get better more quickly. Drink lots of fluids Make sure you are eating well Get plenty of rest We do not have any medications that kill off these viruses. Antibiotics are used to treat bacterial infections; however, they are not active against viral infections. There are some things that might help you feel better, though. Vaporizers, humidifiers, hot showers, and hot fluids help open respiratory and sinus passages [place] [employer] may offer relief of nasal and head congestion Vu's Vapor Rub may relieve congestion Tylenol and Advil help control fevers and headaches Salt water gargles help relieve sore throats Chloraceptic spray or throat lozenges may also help relieve sore throat symptoms Occasionally, viral infections turn into something more serious. You should see your doctor or return to the Urgent Care if: You have fevers for longer than five days You have fevers above 102 degrees You are still sick after 10 days You have shortness of breath or wheezing After several days you are getting worse rather than better documented in this encounter [facility] 02-19-2022 Influenza virus A and B RNA and SARS-CoV-2 (COVID-19) N gene panel MIGDALIA+probe (Resp) COVID 19 RESULT: SARS-CoV-2 (Agent of COVID-19) Not Detected by RT-PCR or equivalent method. This test was developed and its performance characteristics determined by [facility]'s [facility] [place]. This test has been authorized by FDA under an Emergency Use Authorization (EUA). This test has been validated in accordance with the FDA's Guidance Document Policy for Diagnostics Testing in Laboratories Certified to Perform High Complexity Testing under CLIA prior to Emergency use Authorization for Coronavirus Disease 2019 during the Public Health Emergency issued on April 10, 2019. Test performed by [facility], [facility] [place], [address] [address]. INFLUENZA A PCR: Negative for Influenza A by RT-PCR INFLUENZA B PCR: Negative for Influenza B by RT-PCR [facility] Comment on above: Performed By: #### [id number] ####[facility] LABCLIA [id number] [facility] [address] [place] 02-19-2022 Note HNO ID: [id number] Author: Nighat Soliman APRN.EDITING COMPUTER PUBLISHER Service: ? Author Type: Nurse Practitioner Type: Progress Notes Filed: 02/19/2022 2:03 PM Note Text: This note was created using GridGain Systemsriter. Subjective Norma Faustin is a 21 year old female. 21 year old female with PMH ADHD presents with complaints of illness. 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 No records management associate was used. URI She complains of cough. There is no chest tightness, difficulty breathing, frequent throat clearing, hemoptysis, hoarse voice, shortness of breath, sputum production or wheezing. This is a new problem. The current episode started in the past 7 days. The problem occurs constantly. The problem has been unchanged. The cough is non-productive. Associated symptoms include ear congestion, a fever, headaches, malaise/fatigue, myalgias, nasal congestion, rhinorrhea and a sore throat. Pertinent negatives include no appetite change, chest pain, dyspnea on exertion, ear pain, heartburn, orthopnea, PND, postnasal drip, sneezing, sweats, trouble swallowing or weight loss. Her symptoms are aggravated by nothing. Her symptoms are alleviated by nothing. She reports no improvement on treatment. There are no known risk factors for lung disease. There is no history of asthma, bronchiectasis, bronchitis, COPD, emphysema or pneumonia. PAST MEDICAL HISTORY Diagnosis Date ADHD (attention deficit hyperactivity disorder) Irregular periods -2015 Age 14 PMH - PAST MEDICAL HISTORY OF 01/03/12 Color Vision - Normal PAST SURGICAL HISTORY Procedure Laterality Date BACK SURGERY HX 2011 Tumor/ adrien removed NONE ALLERGIES Patient has no known allergies. MEDICATIONS acetaminophen 325 mg cap Take by mouth. Lactobacillus acidophilus (PROBIOTIC) 10 billion cell cap Take by mouth. polyethylene glycol 3350 (MIRALAX) 17 gram/dose powder Constipation (Patient not taking: Reported on 11/28/2021) Kfkkugwqsyzteye-Txigaqbjw-RH (BROMFED DM) 2-30-10 mg/5 mL syrup Take 5-10 ml po q6h prn (Patient not taking: Reported on 03/19/2021 ) Desogestrel-Ethinyl Estradiol (APRI) 0.15-0.03 mg per tablet Take 1 tablet by mouth once daily. (Patient not taking: Reported on 03/19/2021 ) albuterol HFA (PROAIR HFA) 90 mcg/actuation inhaler Inhale 2 Puffs as instructed every 6 hours as needed. (Patient not taking: Reported on 11/14/2020 ) FAMILY HISTORY Problem Relation Age of Onset other (Robins-Miguel Syndrome) Father diagnosed 01/2016 None Paternal Grandfather Social History Tobacco Use Smoking status: Never Passive exposure: Yes Smokeless tobacco: Never Tobacco comments: Mother smokes outside of the home Vaping Use Vaping Use: Former Substance Use Topics Alcohol use: No Drug use: No Review of Systems Constitutional: Positive for chills, fatigue, fever and malaise/fatigue. Negative for appetite change and weight loss. HENT: Positive for congestion, rhinorrhea and sore throat. Negative for ear pain, hoarse voice, postnasal drip, sneezing and trouble swallowing. Eyes: Negative for photophobia, pain, discharge, redness, itching and visual disturbance. Respiratory: Positive for cough. Negative for apnea, hemoptysis, sputum production, chest tightness, shortness of breath and wheezing. Cardiovascular: Negative for chest pain, dyspnea on exertion and PND. Gastrointestinal: Negative for abdominal pain, diarrhea, heartburn, nausea and vomiting. Musculoskeletal: Positive for myalgias. Negative for arthralgias, back pain and gait problem. Skin: Negative for color change, pallor, rash and wound. Allergic/Immunologic: Negative for environmental allergies, food allergies and immunocompromised state. Neurological: Positive for headaches. Negative for dizziness and facial asymmetry. Hematological: Negative for adenopathy. Does not bruise/bleed easily. Psychiatric/Behavioral: Negative for agitation and behavioral problems. Objective BP 120/66 Pulse 98 Temp 37.1 ?C (98.7 ?F) (Tympanic) Resp 16 Wt 85.2 kg (187 lb 12.8 oz) LMP 02/02/2022 (Exact Date) SpO2 99% Physical Exam Vitals and nursing note reviewed. Constitutional: General: She is not in acute distress. Appearance: Normal appearance. She is normal weight. She is not ill-appearing, toxic-appearing or diaphoretic. HENT: Head: Normocephalic and atraumatic. Right Ear: Ear canal and external ear normal. Left Ear: Ear canal and external ear normal. Nose: Nose normal. No congestion or rhinorrhea. Mouth/Throat: Mouth: Mucous membranes are moist. Pharynx: Posterior oropharyngeal erythema present. No oropharyngeal exudate. (more content not included)... [facility] 02-19-2022 History of Presen t illness Narrative This note was created using The Political Student. Subjective Norma Faustin is a 21 year old female. 21 year old female with PMH ADHD presents with complaints of illness. 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 No records management associate was used. URI She complains of cough. There is no chest tightness, difficulty breathing, frequent throat clearing, hemoptysis, hoarse voice, shortness of breath, sputum production or wheezing. This is a new problem. The current episode started in the past 7 days. The problem occurs constantly. The problem has been unchanged. The cough is non-productive. Associated symptoms include ear congestion, a fever, headaches, malaise/fatigue, myalgias, nasal congestion, rhinorrhea and a sore throat. Pertinent negatives include no appetite change, chest pain, dyspnea on exertion, ear pain, heartburn, orthopnea, PND, postnasal drip, sneezing, sweats, trouble swallowing or weight loss. Her symptoms are aggravated by nothing. Her symptoms are alleviated by nothing. She reports no improvement on treatment. There are no known risk factors for lung disease. There is no history of asthma, bronchiectasis, bronchitis, COPD, emphysema or pneumonia. PAST MEDICAL HISTORY Diagnosis Date ADHD (attention deficit hyperactivity disorder) Irregular periods -2015 Age 14 PMH - PAST MEDICAL HISTORY OF 01/03/12 Color Vision - Normal PAST SURGICAL HISTORY Procedure Laterality Date BACK SURGERY HX 2010 Tumor/ adrien removed NONE ALLERGIES Patient has no known allergies. MEDICATIONS acetaminophen 325 mg cap Take by mouth. Lactobacillus acidophilus (PROBIOTIC) 10 billion cell cap Take by mouth. polyethylene glycol 3350 (MIRALAX) 17 gram/dose powder Constipation (Patient not taking: Reported on 11/28/2021) Bqornvmsyaowhip-Ijhjmokuy-SD (BROMFED DM) 2-30-10 mg/5 mL syrup Take 5-10 ml po q6h prn (Patient not taking: Reported on 03/19/2021 ) Desogestrel-Ethinyl Estradiol (APRI) 0.15-0.03 mg per tablet Take 1 tablet by mouth once daily. (Patient not taking: Reported on 03/19/2021 ) albuterol HFA (PROAIR HFA) 90 mcg/actuation inhaler Inhale 2 Puffs as instructed every 6 hours as needed. (Patient not taking: Reported on 11/14/2020 ) FAMILY HISTORY Problem Relation Age of Onset other (Robins-Miguel Syndrome) Father diagnosed 01/2016 None Paternal Grandfather Social History Tobacco Use Smoking status: Never Passive exposure: Yes Smokeless tobacco: Never Tobacco comments: Mother smokes outside of the home Vaping Use Vaping Use: Former Substance Use Topics Alcohol use: No Drug use: No Review of Systems Constitutional: Positive for chills, fatigue, fever and malaise/fatigue. Negative for appetite change and weight loss. HENT: Positive for congestion, rhinorrhea and sore throat. Negative for ear pain, hoarse voice, postnasal drip, sneezing and trouble swallowing. Eyes: Negative for photophobia, pain, discharge, redness, itching and visual disturbance. Respiratory: Positive for cough. Negative for apnea, hemoptysis, sputum production, chest tightness, shortness of breath and wheezing. Cardiovascular: Negative for chest pain, dyspnea on exertion and PND. Gastrointestinal: Negative for abdominal pain, diarrhea, heartburn, nausea and vomiting. Musculoskeletal: Positive for myalgias. Negative for arthralgias, back pain and gait problem. Skin: Negative for color change, pallor, rash and wound. Allergic/Immunologic: Negative for environmental allergies, food allergies and immunocompromised state. Neurological: Positive for headaches. Negative for dizziness and facial asymmetry. Hematological: Negative for adenopathy. Does not bruise/bleed easily. Psychiatric/Behavioral: Negative for agitation and behavioral problems. Objective BP 120/66 Pulse 98 Temp 37.1 C (98.7 F) (Tympanic) Resp 16 Wt 85.2 kg (187 lb 12.8 oz) LMP 02/02/2022 (Exact Date) SpO2 99% Physical Exam Vitals and nursing note reviewed. Constitutional: General: She is not in acute distress. Appearance: Normal appearance. She is normal weight. She is not ill-appearing, toxic-appearing or diaphoretic. HENT: Head: Normocephalic and atraumatic. Right Ear: Ear canal and external ear normal. Left Ear: Ear canal and external ear normal. Nose: Nose normal. No congestion or rhinorrhea. Mouth/Throat: Mouth: Mucous membranes are moist. Pharynx: Posterior oropharyngeal erythema present. No oropharyngeal exudate. Eyes: General: Right eye: No discharge. Left eye: No discharge. Extraocular Movements: Extraocular movements intact. Conjunctiva/sclera: Conjunctivae normal. Pupils: Pupils are equal, round, and reactive to light. Cardiovascular: Rate and Rhythm: Normal rate and regular rhythm. Pulses: Normal pulses. Heart sounds: Normal heart sounds. No murmur heard. No friction rub. Pulmonary: Effort: Pulmonary effort is normal. No respiratory distress. Breath sounds: Normal breath sounds. No stridor. No wheezing, rhonchi or rales. Chest: Chest wall: No tenderness. Abdominal: General: Abdomen is flat. There is no distension. Palpations: Abdomen is soft. There is no mass. Tenderness: There is no abdominal tenderness. There is no right CVA tenderness, left CVA tenderness, guarding or rebound. Hernia: No hernia is present. Musculoskeletal: General: No swelling, tenderness, deformity or signs of injury. Normal range of motion. Cervical back: Normal range of motion and neck supple. No rigidity. Right lower leg: No edema. Left lower leg: No edema. Lymphadenopathy: Cervical: No cervical adenopathy. Skin: General: Skin is warm and dry. Capillary Refill: Capillary refill takes less than 2 seconds. Coloration: Skin is not jaundiced or pale. Findings: No bruising, erythema, lesion or rash. Neurological: General: No focal deficit present. Mental Status: She is alert and oriented to person, place, and time. Cranial Nerves: No cranial nerve deficit. Sensory: No sensory deficit. Motor: No weakness. Coordination: Coordination normal. Gait: Gait normal. Psychiatric: Mood and Affect: Mood normal. Behavior: Behavior normal. Thought Content: Thought content normal. Judgment: Judgment normal. Assessment and Plan ASSESSMENT/PLAN: 1. Pharyngitis, unspecified etiology - ICD9: 462, ICD10: J02.9 (primary diagnosis) - suspect viral - Alere Strep Test NEGATIVE, no culture pending - antibiotic as written - Discussed supportive care treatment with fluids, rest and analgesia. - The patient may also use OTC cough and cold meds as needed, warm salt water gargles, throat lozenges and/or OTC throat spray as needed, and nasal saline gtts and suction prn. - Contagious dz precautions discussed- including considered contagious until on antibiotics for 24 hours - The patient should follow up in 3-5 days if symptoms persist or worsen - Call back if drooling, increased temperature, symptoms of dehydration and/or still sick in one week - STREP A MOLECULAR (POC) 2. Exposure to COVID-19 virus - ICD9: V01.79, ICD10: Z20.822 Grandparents diagnosed with COVID last week States family ill as well. - COVID WITH FLUA+B, ROUTINE 3. URI, acute - ICD9: 465.9, ICD10: J06.9 - Discussed viral etiology and rationale for treatment. - Symptomatic treatment with prn analgesia - Supportive care with fluids and rest - The patient may also use OTC cough and cold meds as needed and warm salt water gargles, throat lozenges and/or OTC throat spray as needed. - Follow up in 3-5 days if symptoms persist or sooner if worsening of symptoms - COVID WITH FLUA+B, ROUTINE-obtained and pending Work note Nighat Soliman APRN.FARRUKH documented in this encounter [facility] 12-13-2021 Miscellaneous Notes Phone call placed patients mother (Jocelin) listed on chart advised (see prior provider encounter) Brandon Aponte LPN Negative for flu and COVID please notify thank you documented in this encounter [facility] 12-12-2021 Influenza virus A and B RNA and SARS-CoV-2 (COVID-19) N gene panel MIGDALIA+probe (Resp) COVID 19 RESULT: SARS-CoV-2 (Agent of COVID-19) Not Detected by RT-PCR or equivalent method. rosalinda [id number] (TORY)_EUA This test was developed and its performance characteristics determined by [facility] [place]. This test has been authorized by FDA under an Emergency Use Authorization (EUA). This test has been validated in accordance with the FDA's Guidance Document Policy for Diagnostics Testing in Laboratories Certified to Perform High Complexity Testing under CLIA prior to Emergency use Authorization for Coronavirus Disease 2019 during the Public Health Emergency issued on April 10, 2019. Test performed by [facility], [facility] [place], [address] [place] [address]. INFLUENZA A PCR: Negative for Influenza A by RT-PCR INFLUENZA B PCR: Negative for Influenza B by RT-PCR [facility] Comment on above: Performed By: #### [id number] ####[facility] LABCLIA [id number] [place] [address] [place] 12-12-2021 Note HNO ID: [id number] Author: Bradly Vernon APRN.[facility] Service: ? Author Type: Nurse Practitioner Type: Progress Notes Filed: 12/12/2021 3:42 PM Note Text: Subjective HPI Nontoxic-appearing female presents urgent care chief plaint sore throat headache fatigue. Duration of symptoms 3 days. Associated symptoms listed above. Patient states most prominent symptom today is fatigue. Was sent home from work earlier today. No known sick contacts. Has not use any OTC medications today. History of strep throat. This feels similar. Denies any fever today body aches chills productive cough chest pain shortness of breath pleuritic pain hemoptysis nausea vomiting abdominal pain change in bowel or bladder habits. Past medical history prescription medication use and allergies reviewed. .Patient presents with: Sore Throat: STEVEN[place], fever x 3 days PAST MEDICAL HISTORY Diagnosis Date ADHD (attention deficit hyperactivity disorder) Irregular periods -2015 Age 14 PMH - PAST MEDICAL HISTORY OF 01/03/12 Color Vision - Normal PAST SURGICAL HISTORY Procedure Laterality Date BACK SURGERY HX 2010 Tumor/ adrien removed NONE ALLERGIES Patient has no known allergies. MEDICATIONS erythromycin (ROMYCIN) 5 mg/gram (0.5 %) ophthalmic ointment Use 1 application in the left eye four times daily for 14 days. acetaminophen 325 mg cap Take by mouth. Lactobacillus acidophilus (PROBIOTIC) 10 billion cell cap Take by mouth. polyethylene glycol 3350 (MIRALAX) 17 gram/dose powder Constipation (Patient not taking: Reported on 11/28/2021) Nfzchzznsishplv-Gievvrzrh-MC (BROMFED DM) 2-30-10 mg/5 mL syrup Take 5-10 ml po q6h prn (Patient not taking: Reported on 03/19/2021 ) Desogestrel-Ethinyl Estradiol (APRI) 0.15-0.03 mg per tablet Take 1 tablet by mouth once daily. (Patient not taking: Reported on 03/19/2021 ) albuterol HFA (PROAIR HFA) 90 mcg/actuation inhaler Inhale 2 Puffs as instructed every 6 hours as needed. (Patient not taking: Reported on 11/14/2020 ) FAMILY HISTORY Problem Relation Age of Onset other (Robins-Miguel Syndrome) Father diagnosed 01/2016 None Paternal Grandfather Social History Tobacco Use Smoking status: Never Passive exposure: Yes Smokeless tobacco: Never Tobacco comments: Mother smokes outside of the home Vaping Use Vaping Use: Former Substance Use Topics Alcohol use: No Drug use: No BP 102/80 Pulse 75 Temp 37.1 ?C (98.7 ?F) Resp 23 Wt 85.2 kg (187 lb 12.8 oz) LMP 09/23/2021 (Exact Date) SpO2 99% Review of Systems Constitutional: Positive for fever and malaise/fatigue. Negative for chills. HENT: Positive for sore throat. Negative for congestion, ear discharge, ear pain and sinus pain. Eyes: Negative for blurred vision, pain, discharge and redness. Respiratory: Negative for cough, hemoptysis, sputum production, shortness of breath, wheezing and stridor. Cardiovascular: Negative for chest pain. Gastrointestinal: Negative for abdominal pain, diarrhea, nausea and vomiting. Musculoskeletal: Positive for myalgias. Skin: Negative for itching and rash. Neurological: Positive for headaches. Negative for dizziness. Objective Physical Exam Constitutional: General: She is not in acute distress. Appearance: She is not diaphoretic. HENT: Head: Normocephalic. Jaw: No trismus or tenderness. Nose: Nose normal. Mouth/Throat: Lips: [place]. Mouth: Mucous membranes are moist. Pharynx: Oropharynx is clear. Uvula midline. Posterior oropharyngeal erythema present. No pharyngeal swelling, oropharyngeal exudate or uvula swelling. Tonsils: No tonsillar exudate or tonsillar abscesses. Eyes: Conjunctiva/sclera: Conjunctivae normal. Pupils: Pupils are equal, round, and reactive to light. Cardiovascular: Rate and Rhythm: Normal rate and regular rhythm. Heart sounds: Normal heart sounds. Pulmonary: Effort: Pulmonary effort is normal. No tachypnea, accessory muscle usage or respiratory distress. Breath sounds: Normal breath sounds. No stridor. No wheezing, rhonchi or rales. Abdominal: Palpations: Abdomen is soft. Tenderness: There is no abdominal tenderness. Musculoskeletal: Cervical back: Normal range of motion and neck supple. No rigidity or tenderness. Lymphadenopathy: Cervical: No cervical adenopathy. Skin: General: Skin is warm and dry. Neurological: Mental Status: She is alert and oriented to person, place, and time. ASSESSMENT/PLAN: 1. Pharyngitis, unspecified etiology - ICD9: 462, ICD10: J02.9 (primary diagnosis) - STREP A MOLECULAR (POC) - COVID WITH FLUA+B, ROUTINE - MONOTEST, INFECTIOUS MONO 2. Fatigue, unspecified type - ICD9: 780.79, ICD10: R53.83 - COVID WITH FLUA+B, ROUTINE - MONOTEST, INFECTIOUS MONO 3. Viral illness - ICD9: 079.99, ICD10: B34.9 - COVID WITH FLUA+B, ROUTINE Strep test negative. COVID-19 influenza test ordered. Bradley test ordered. Will return on Friday if symptom (more content not included)... [facility] 12-12-2021 Instructions Bradly Vernon APRN.EDITING COMPUTER PUBLISHER - 12/12/2021 3:25 PM EDT How to Manage Common Symptoms Associated with COVID for Adults Fever- Fever is a temperature over 100.4 F and can occur when the body is fighting an infection. To help treat a fever: Drink plenty of fluids and stay well hydrated. Eat small amounts of easy to digest food. Rest. Your body needs rest to recover, but getting up and moving around the house frequently is a good idea. You should try to continue doing your normal daily activities (bathing, toileting, grooming, cooking), though you will probably feel tired, and need to rest often. Avoid any heavy activity or exercise, as this will increase your body temperature. Dress in light clothing and stay covered in a light sheet. Keep the room temperature cool. Take a slightly warm (not cold or cool) bath, or apply damp washcloths to the forehead and wrists. Cough- Cough is a common symptom associated with COVID and can be bothersome. To help treat a cough: Stay well hydrated. Try warm water or tea with lemon and/or honey to help soothe the cough. Use a humidifier to add moisture to the air. Try a product with menthol, like a cough drop or a rub for your chest such as Vicks, which can help reduce cough. Try cough drops. Avoid smoking and other strong odors or perfumes. Try breathing exercises to keep your lungs open and clear. Take a big deep breath through your nose and hold for 5 seconds before slowly releasing. Repeat frequently, while you are awake. Congestion- Runny nose or nasal congestion can occur with COVID. Treatment can help relieve symptoms: Try OTC nasal saline spray, or nasal saline rinse to relieve mucus congestion. Nasal strips can help keep nasal passages open, to increase airflow. Elevating your head with an extra pillow in bed can help reduce congestion. Using a humidifier can increase moisture in the air, and make breathing easier. Sore Throat- Another common symptom with COVID, can be managed at home by: Stay well hydrated. Gargle with salt water - mix teaspoon salt with 1 cup of warm water and gargle. This helps to loosen mucus in the back of the throat and may reduce discomfort. Try ice chips, popsicles or lozenges to soothe the throat. Nausea/Vomiting/Diarrhea- These are common symptoms, and staying hydrated is most important. If you are nauseous or vomiting, start with small sips of water every 10-15 minutes and increase as tolerated. You can try sucking an ice cube too. If tolerating, you can try pedialyte or Gatorade, or flat sprite or german-karla. Start slowly and increase as you are able to. Instead of meals, try smaller, more frequent snacks. Try eating bland foods like crackers, toast, rice, and applesauce. Avoid spicy, greasy or fried foods and dairy containing foods. Even if you aren't feeling hungry due to lack of smell or taste, it is important to try to take in some food when you are able. After drinking and eating, rest in an upright position for up to two hours as needed to help decrease nauseous feelings. Try closing your eyes, avoid moving and watching TV. Avoid strong odors that can make you feel more nauseated. When to seek emergency medical attention Look for emergency warning signs for COVID-19. If having any of these symptoms, seek emergency medical care immediately: Trouble breathing Persistent pain or pressure in the chest New confusion Inability to wake or stay awake Bluish lips or face *This list is not all possible symptoms. Please call your medical provider for any other symptoms that are severe or concerning to you. documented in this encounter [facility] 12-12-2021 History of Presen t illness Narrative Subjective HPI Nontoxic-appearing female presents urgent care chief plaint sore throat headache fatigue. Duration of symptoms 3 days. Associated symptoms listed above. Patient states most prominent symptom today is fatigue. Was sent home from work earlier today. No known sick contacts. Has not use any OTC medications today. History of strep throat. This feels similar. Denies any fever today body aches chills productive cough chest pain shortness of breath pleuritic pain hemoptysis nausea vomiting abdominal pain change in bowel or bladder habits. Past medical history prescription medication use and allergies reviewed. .Patient presents with: Sore Throat: STEVENSON, fever x 3 days PAST MEDICAL HISTORY Diagnosis Date ADHD (attention deficit hyperactivity disorder) Irregular periods -2015 Age 14 PMH - PAST MEDICAL HISTORY OF 01/03/12 Color Vision - Normal PAST SURGICAL HISTORY Procedure Laterality Date BACK SURGERY HX 2010 Tumor/ adrien removed NONE ALLERGIES Patient has no known allergies. MEDICATIONS erythromycin (ROMYCIN) 5 mg/gram (0.5 %) ophthalmic ointment Use 1 application in the left eye four times daily for 14 days. acetaminophen 325 mg cap Take by mouth. Lactobacillus acidophilus (PROBIOTIC) 10 billion cell cap Take by mouth. polyethylene glycol 3350 (MIRALAX) 17 gram/dose powder Constipation (Patient not taking: Reported on 11/28/2021) Junwqgozfkxivbe-Vszzhqlsw-CV (BROMFED DM) 2-30-10 mg/5 mL syrup Take 5-10 ml po q6h prn (Patient not taking: Reported on 03/19/2021 ) Desogestrel-Ethinyl Estradiol (APRI) 0.15-0.03 mg per tablet Take 1 tablet by mouth once daily. (Patient not taking: Reported on 03/19/2021 ) albuterol HFA (PROAIR HFA) 90 mcg/actuation inhaler Inhale 2 Puffs as instructed every 6 hours as needed. (Patient not taking: Reported on 11/14/2020 ) FAMILY HISTORY Problem Relation Age of Onset other (Robins-Miguel Syndrome) Father diagnosed 01/2016 None Paternal Grandfather Social History Tobacco Use Smoking status: Never Passive exposure: Yes Smokeless tobacco: Never Tobacco comments: Mother smokes outside of the home Vaping Use Vaping Use: Former Substance Use Topics Alcohol use: No Drug use: No BP 102/80 Pulse 75 Temp 37.1 C (98.7 F) Resp 23 Wt 85.2 kg (187 lb 12.8 oz) LMP 09/23/2021 (Exact Date) SpO2 99% Review of Systems Constitutional: Positive for fever and malaise/fatigue. Negative for chills. HENT: Positive for sore throat. Negative for congestion, ear discharge, ear pain and sinus pain. Eyes: Negative for blurred vision, pain, discharge and redness. Respiratory: Negative for cough, hemoptysis, sputum production, shortness of breath, wheezing and stridor. Cardiovascular: Negative for chest pain. Gastrointestinal: Negative for abdominal pain, diarrhea, nausea and vomiting. Musculoskeletal: Positive for myalgias. Skin: Negative for itching and rash. Neurological: Positive for headaches. Negative for dizziness. Objective Physical Exam Constitutional: General: She is not in acute distress. Appearance: She is not diaphoretic. HENT: Head: Normocephalic. Jaw: No trismus or tenderness. Nose: Nose normal. Mouth/Throat: Lips: [place]. Mouth: Mucous membranes are moist. Pharynx: Oropharynx is clear. Uvula midline. Posterior oropharyngeal erythema present. No pharyngeal swelling, oropharyngeal exudate or uvula swelling. Tonsils: No tonsillar exudate or tonsillar abscesses. Eyes: Conjunctiva/sclera: Conjunctivae normal. Pupils: Pupils are equal, round, and reactive to light. Cardiovascular: Rate and Rhythm: Normal rate and regular rhythm. Heart sounds: Normal heart sounds. Pulmonary: Effort: Pulmonary effort is normal. No tachypnea, accessory muscle usage or respiratory distress. Breath sounds: Normal breath sounds. No stridor. No wheezing, rhonchi or rales. Abdominal: Palpations: Abdomen is soft. Tenderness: There is no abdominal tenderness. Musculoskeletal: Cervical back: Normal range of motion and neck supple. No rigidity or tenderness. Lymphadenopathy: Cervical: No cervical adenopathy. Skin: General: Skin is warm and dry. Neurological: Mental Status: She is alert and oriented to person, place, and time. ASSESSMENT/PLAN: 1. Pharyngitis, unspecified etiology - ICD9: 462, ICD10: J02.9 (primary diagnosis) - STREP A MOLECULAR (POC) - COVID WITH FLUA+B, ROUTINE - MONOTEST, INFECTIOUS MONO 2. Fatigue, unspecified type - ICD9: 780.79, ICD10: R53.83 - COVID WITH FLUA+B, ROUTINE - MONOTEST, INFECTIOUS MONO 3. Viral illness - ICD9: 079.99, ICD10: B34.9 - COVID WITH FLUA+B, ROUTINE Strep test negative. COVID-19 influenza test ordered. Bradley test ordered. Will return on Friday if symptoms are not improving for Monospot test. Patient was educated on supportive therapies. Patient will follow up with primary care provider as needed. Patient was instructed to immediately proceed to emergency room for any new, worsening, or symptoms lasting longer than anticipated. The patient's clinical presentation is otherwise unremarkable at this time. Based on exam and clinical finding, the patient is stable for discharge. Plan of care was discussed with patient. Patient verbalizes understanding and agrees to plan of care. This note was generated using [employer] software. It may contain errors in wording, punctuation, or spelling. Bradly Vernon APRN.FARRUKH documented in this encounter [facility] 11-28-2021 Note HNO ID: [id number] Author: Monie Patino APRN.FARRUKH Service: ? Author Type: Nurse Practitioner Type: Progress Notes Filed: 11/28/2021 5:02 PM Note Text: SUBJECTIVE: Norma Faustin is a 21 year old female. Who presents today with a stye to her left upper eyelid. She was treated 10 days ago with doxy and prednisone. It almost went away and now it is back. She has no blurred vision. No fever she has no pain in the eye itself. She is here today with concern of stye HPI PAST MEDICAL HISTORY Diagnosis Date ADHD (attention deficit hyperactivity disorder) Irregular periods -2015 Age 14 PMH - PAST MEDICAL HISTORY OF 01/03/12 Color Vision - Normal FAMILY HISTORY Problem Relation Age of Onset other (Robins-Miguel Syndrome) Father diagnosed 01/2016 None Paternal Grandfather Social History Tobacco Use Smoking status: Never Passive exposure: Yes Smokeless tobacco: Never Tobacco comments: Mother smokes outside of the home Vaping Use Vaping Use: Former Substance Use Topics Alcohol use: No Drug use: No ALLERGIES No Known Allergies Current Outpatient Medications Medication Sig Dispense Refill acetaminophen 325 mg cap Take by mouth. Lactobacillus acidophilus (PROBIOTIC) 10 billion cell cap Take by mouth. polyethylene glycol 3350 (MIRALAX) 17 gram/dose powder Constipation (Patient not taking: Reported on 11/28/2021) 116 g 0 Tudrzgserodswuf-Vujwfdvlz-SZ (BROMFED DM) 2-30-10 mg/5 mL syrup Take 5-10 ml po q6h prn (Patient not taking: Reported on 03/19/2021 ) 120 mL 0 Desogestrel-Ethinyl Estradiol (APRI) 0.15-0.03 mg per tablet Take 1 tablet by mouth once daily. (Patient not taking: Reported on 03/19/2021 ) 28 tablet 11 albuterol HFA (PROAIR HFA) 90 mcg/actuation inhaler Inhale 2 Puffs as instructed every 6 hours as needed. (Patient not taking: Reported on 11/14/2020 ) 18 g 0 No current facility-administered medications for this visit. OBJECTIVE: BP 118/80 Pulse 76 Temp 36.7 ?C (98 ?F) Resp 21 Wt 85 kg (187 lb 6.4 oz) LMP 09/23/2021 (Exact Date) SpO2 99% ROS all other systems reviewed and are negative Physical Exam Constitutional: Well developed, well nourished, NAD, AANDO X3. ENT: Head is atraumatic, airway patent, mucosal membranes moist Left upper eye lid with red stye no signs of cellulitis. Neck: supple with no palpable lymph nodes Cardiac: Heart tone normal rate and rhythm Respiratory: Breath sounds clear : no CVA tenderness MS: no swelling, tenderness or deformity in upper or lower extremities, no midline tenderness in cervical, thoracic or lumbar spine. Neuro: strength sensation and coordination intact. CN II-XII grossly intact, Skin: warm and dry with out rash, lesion or ecchymosis on exposed skin Psych: alert appropriate, speech clear It was a pleasure to take care of Norma Faustin today. She has just finished antibiotics and steroids and the infection has come back. Today I will give her erythromycin ointment for the stye. She will f/u with her eye doctor. She will use warm compresses and may take motrin for pian Patient will follow up with family physician. They may return to the Urgent Care or go to the ER for worsening symptoms or concerns. Patient verbalized understanding of plan of care and is in agreement. ASSESSMENT/PLAN: 1. Hordeolum externum of left upper eyelid - ICD9: 373.11, ICD10: H00.014 - ERYTHROMYCIN 5 MG/GRAM (0.5 %) EYE OINTMENT Monie Patino APRN.[facility] 11-28-2021 History of Presen t illness Narrative SUBJECTIVE: Norma Faustin is a 21 year old female. Who presents today with a stye to her left upper eyelid. She was treated 10 days ago with doxy and prednisone. It almost went away and now it is back. She has no blurred vision. No fever she has no pain in the eye itself. She is here today with concern of stye HPI PAST MEDICAL HISTORY Diagnosis Date ADHD (attention deficit hyperactivity disorder) Irregular periods -2015 Age 14 PMH - PAST MEDICAL HISTORY OF 01/03/12 Color Vision - Normal FAMILY HISTORY Problem Relation Age of Onset other (Robins-Miguel Syndrome) Father diagnosed 01/2016 None Paternal Grandfather Social History Tobacco Use Smoking status: Never Passive exposure: Yes Smokeless tobacco: Never Tobacco comments: Mother smokes outside of the home Vaping Use Vaping Use: Former Substance Use Topics Alcohol use: No Drug use: No ALLERGIES No Known Allergies Current Outpatient Medications Medication Sig Dispense Refill acetaminophen 325 mg cap Take by mouth. Lactobacillus acidophilus (PROBIOTIC) 10 billion cell cap Take by mouth. polyethylene glycol 3350 (MIRALAX) 17 gram/dose powder Constipation (Patient not taking: Reported on 11/28/2021) 116 g 0 Glgxxlbiaqqnuli-Yzhknifke-CF (BROMFED DM) 2-30-10 mg/5 mL syrup Take 5-10 ml po q6h prn (Patient not taking: Reported on 03/19/2021 ) 120 mL 0 Desogestrel-Ethinyl Estradiol (APRI) 0.15-0.03 mg per tablet Take 1 tablet by mouth once daily. (Patient not taking: Reported on 03/19/2021 ) 28 tablet 11 albuterol HFA (PROAIR HFA) 90 mcg/actuation inhaler Inhale 2 Puffs as instructed every 6 hours as needed. (Patient not taking: Reported on 11/14/2020 ) 18 g 0 No current facility-administered medications for this visit. OBJECTIVE: BP 118/80 Pulse 76 Temp 36.7 C (98 F) Resp 21 Wt 85 kg (187 lb 6.4 oz) LMP 09/23/2021 (Exact Date) SpO2 99% ROS all other systems reviewed and are negative Physical Exam Constitutional: Well developed, well nourished, NAD, A&O X3. ENT: Head is atraumatic, airway patent, mucosal membranes moist Left upper eye lid with red stye no signs of cellulitis. Neck: supple with no palpable lymph nodes Cardiac: Heart tone normal rate and rhythm Respiratory: Breath sounds clear : no CVA tenderness MS: no swelling, tenderness or deformity in upper or lower extremities, no midline tenderness in cervical, thoracic or lumbar spine. Neuro: strength sensation and coordination intact. CN II-XII grossly intact, Skin: warm and dry with out rash, lesion or ecchymosis on exposed skin Psych: alert appropriate, speech clear It was a pleasure to take care of Norma Faustin today. She has just finished antibiotics and steroids and the infection has come back. Today I will give her erythromycin ointment for the stye. She will f/u with her eye doctor. She will use warm compresses and may take motrin for pian Patient will follow up with family physician. They may return to the Urgent Care or go to the ER for worsening symptoms or concerns. Patient verbalized understanding of plan of care and is in agreement. ASSESSMENT/PLAN: 1. Hordeolum externum of left upper eyelid - ICD9: 373.11, ICD10: H00.014 - ERYTHROMYCIN 5 MG/GRAM (0.5 %) EYE OINTMENT Monie Patino APRN.FARRUKH documented in this encounter [facility] 11-18-2021 Note HNO ID: [id number] Author: Angelita Ghotra APRN.FARRUKH Service: ? Author Type: Nurse Practitioner Type: Progress Notes Filed: 11/18/2021 1:53 PM Note Text: Subjective Has some redness and swelling on the left upper eyelid. Patient says its been about 1 day. Patient's had this before. Patient denies any pain or visual changes in the actual eyeball. Patient denies any other symptoms or injuries to the area. The history is provided by the patient. No records management associate was used. Eye Problem Review of Systems Constitutional: Negative. Skin: Negative. Objective Physical Exam Constitutional: Appearance: Normal appearance. Eyes: General: Right eye: No hordeolum. Left eye: Hordeolum present. Comments: Patient has swelling in the blue area marked above. Patient has erythema in the red area marked above. Appears to be an infected stye. Pulmonary: Effort: Pulmonary effort is normal. Neurological: Mental Status: She is alert. PAST MEDICAL HISTORY Diagnosis Date ADHD (attention deficit hyperactivity disorder) Irregular periods -2015 Age 14 PMH - PAST MEDICAL HISTORY OF 01/03/12 Color Vision - Normal PAST SURGICAL HISTORY Procedure Laterality Date BACK SURGERY HX 2010 Tumor/ adrien removed NONE ALLERGIES Patient has no known allergies. MEDICATIONS acetaminophen 325 mg cap Take by mouth. doxycycline monohydrate 100 mg tablet Take 1 tablet by mouth twice daily for 5 days. predniSONE (DELTASONE) 20 mg tablet Take 1 tablet by mouth once daily for 5 days. Lactobacillus acidophilus (PROBIOTIC) 10 billion cell cap Take by mouth. polyethylene glycol 3350 (MIRALAX) 17 gram/dose powder Constipation Pmuydchfokfynda-Vmojbcbwb-RR (BROMFED DM) 2-30-10 mg/5 mL syrup Take 5-10 ml po q6h prn (Patient not taking: Reported on 03/19/2021 ) Desogestrel-Ethinyl Estradiol (APRI) 0.15-0.03 mg per tablet Take 1 tablet by mouth once daily. (Patient not taking: Reported on 03/19/2021 ) albuterol HFA (PROAIR HFA) 90 mcg/actuation inhaler Inhale 2 Puffs as instructed every 6 hours as needed. (Patient not taking: Reported on 11/14/2020 ) FAMILY HISTORY Problem Relation Age of Onset other (Robins-Miguel Syndrome) Father diagnosed 01/2016 None Paternal Grandfather Social History Tobacco Use Smoking status: Never Passive exposure: Yes Smokeless tobacco: Never Tobacco comments: Mother smokes outside of the home Vaping Use Vaping Use: Former Substance Use Topics Alcohol use: No Drug use: No ASSESSMENT/PLAN: 1. Infection - ICD9: 136.9, ICD10: B99.9 Prednisone daily for 5 days doxycycline twice a day for 5 days. Instructed to follow-up if anything changes or worsens. Patient was okay with this care plan Angelita Ghotra APRN.[facility] 11-18-2021 History of Presen t illness Narrative Images from the original note were not included. Subjective Has some redness and swelling on the left upper eyelid. Patient says its been about 1 day. Patient's had this before. Patient denies any pain or visual changes in the actual eyeball. Patient denies any other symptoms or injuries to the area. The history is provided by the patient. No records management associate was used. Eye Problem Review of Systems Constitutional: Negative. Skin: Negative. Objective Physical Exam Constitutional: Appearance: Normal appearance. Eyes: General: Right eye: No hordeolum. Left eye: Hordeolum present. Comments: Patient has swelling in the blue area marked above. Patient has erythema in the red area marked above. Appears to be an infected stye. Pulmonary: Effort: Pulmonary effort is normal. Neurological: Mental Status: She is alert. PAST MEDICAL HISTORY Diagnosis Date ADHD (attention deficit hyperactivity disorder) Irregular periods -2016 Age 14 PMH - PAST MEDICAL HISTORY OF 01/03/12 Color Vision - Normal PAST SURGICAL HISTORY Procedure Laterality Date BACK SURGERY HX 2010 Tumor/ adrien removed NONE ALLERGIES Patient has no known allergies. MEDICATIONS acetaminophen 325 mg cap Take by mouth. doxycycline monohydrate 100 mg tablet Take 1 tablet by mouth twice daily for 5 days. predniSONE (DELTASONE) 20 mg tablet Take 1 tablet by mouth once daily for 5 days. Lactobacillus acidophilus (PROBIOTIC) 10 billion cell cap Take by mouth. polyethylene glycol 3350 (MIRALAX) 17 gram/dose powder Constipation Qeausphctqsqzep-Egfynuncr-LL (BROMFED DM) 2-30-10 mg/5 mL syrup Take 5-10 ml po q6h prn (Patient not taking: Reported on 03/19/2021 ) Desogestrel-Ethinyl Estradiol (APRI) 0.15-0.03 mg per tablet Take 1 tablet by mouth once daily. (Patient not taking: Reported on 03/19/2021 ) albuterol HFA (PROAIR HFA) 90 mcg/actuation inhaler Inhale 2 Puffs as instructed every 6 hours as needed. (Patient not taking: Reported on 11/14/2020 ) FAMILY HISTORY Problem Relation Age of Onset other (Robins-Miguel Syndrome) Father diagnosed 01/2016 None Paternal Grandfather Social History Tobacco Use Smoking status: Never Passive exposure: Yes Smokeless tobacco: Never Tobacco comments: Mother smokes outside of the home Vaping Use Vaping Use: Former Substance Use Topics Alcohol use: No Drug use: No ASSESSMENT/PLAN: 1. Infection - ICD9: 136.9, ICD10: B99.9 Prednisone daily for 5 days doxycycline twice a day for 5 days. Instructed to follow-up if anything changes or worsens. Patient was okay with this care plan Angelita Ghotra APRN.FARRUKH documented in this encounter [facility] 10-27-2021 Miscellaneous Notes viewed in [employer]. Lizet Harris Attempted to call pt, voicemail was full will try again later. Flores Martines MA negative for flu and COVID please notify thank you documented in this encounter [facility] 10-23-2021 Note HNO ID: [id number] Author: Nighat Soliman APRN.FARRUKH Service: ? Author Type: Nurse Practitioner Type: Progress Notes Filed: 10/23/2021 5:25 PM Note Text: This note was created using [employer]. Subjective Norma Faustin is a 21 year old female. 21 year old female with PMH ADHD presents with complaints of illness. Acute onset one week ago +congestion +cough States yesterday was Acute onset sore throat and headache. +nausea. Denies CP. Denies SOB. States that she utilized Advil and it helped with headache. + ill contacts The history is provided by the patient. No records management associate was used. URI She complains of cough. There is no chest tightness, difficulty breathing, frequent throat clearing, hemoptysis, hoarse voice, shortness of breath, sputum production or wheezing. This is a new problem. The current episode started in the past 7 days. The problem occurs constantly. The problem has been waxing and waning. The cough is non-productive. Associated symptoms include ear congestion, a fever, headaches, nasal congestion, rhinorrhea, sneezing and a sore throat. Pertinent negatives include no appetite change, chest pain, dyspnea on exertion, heartburn, malaise/fatigue, myalgias, sweats, trouble swallowing or weight loss. Relieved by: Advil. There are no known risk factors for lung disease. There is no history of asthma, bronchiectasis, bronchitis, COPD, emphysema or pneumonia. PAST MEDICAL HISTORY Diagnosis Date ADHD (attention deficit hyperactivity disorder) Irregular periods -2015 Age 14 PMH - PAST MEDICAL HISTORY OF 01/03/12 Color Vision - Normal PAST SURGICAL HISTORY Procedure Laterality Date BACK SURGERY HX 2010 Tumor/ adrien removed NONE ALLERGIES Patient has no known allergies. MEDICATIONS Lactobacillus acidophilus (PROBIOTIC) 10 billion cell cap Take by mouth. polyethylene glycol 3350 (MIRALAX) 17 gram/dose powder Constipation acetaminophen (TYLENOL) 325 mg cap Take by mouth. Bzrqkcpiqdglsxe-Pvxbpmzvg-CG (BROMFED DM) 2-30-10 mg/5 mL syrup Take 5-10 ml po q6h prn (Patient not taking: Reported on 03/19/2021 ) Desogestrel-Ethinyl Estradiol (APRI) 0.15-0.03 mg per tablet Take 1 tablet by mouth once daily. (Patient not taking: Reported on 03/19/2021 ) albuterol HFA (PROAIR HFA) 90 mcg/actuation inhaler Inhale 2 Puffs as instructed every 6 hours as needed. (Patient not taking: Reported on 11/14/2020 ) FAMILY HISTORY Problem Relation Age of Onset other (Robins-Miguel Syndrome) Father diagnosed 01/2016 None Paternal Grandfather Social History Tobacco Use Smoking status: Never Passive exposure: Yes Smokeless tobacco: Never Tobacco comments: Mother smokes outside of the home Vaping Use Vaping Use: Former Substance Use Topics Alcohol use: No Drug use: No Review of Systems Constitutional: Positive for chills and fever. Negative for appetite change, malaise/fatigue and weight loss. HENT: Positive for congestion, rhinorrhea, sneezing and sore throat. Negative for hoarse voice and trouble swallowing. Eyes: Negative for pain, discharge, redness and itching. Respiratory: Positive for cough. Negative for apnea, hemoptysis, sputum production, choking, chest tightness, shortness of breath and wheezing. Cardiovascular: Negative for chest pain, dyspnea on exertion, palpitations and leg swelling. Gastrointestinal: Negative for abdominal pain, diarrhea, heartburn, nausea and vomiting. Musculoskeletal: Negative for arthralgias, back pain, gait problem and myalgias. Skin: Negative for color change, pallor, rash and wound. Allergic/Immunologic: Negative for environmental allergies, food allergies and immunocompromised state. Neurological: Positive for headaches. Negative for dizziness and facial asymmetry. Hematological: Negative for adenopathy. Does not bruise/bleed easily. Psychiatric/Behavioral: Negative for agitation and behavioral problems. Objective BP 116/72 Pulse 85 Temp 36.7 ?C (98 ?F) Resp 16 Wt 83.2 kg (183 lb 6.4 oz) LMP 09/23/2021 (Exact Date) SpO2 99% Physical Exam Vitals and nursing note reviewed. Constitutional: General: She is not in acute distress. Appearance: Normal appearance. She is normal weight. She is not ill-appearing, toxic-appearing or diaphoretic. HENT: Head: Normocephalic and atraumatic. Right Ear: Ear canal and external ear normal. Left Ear: Ear canal and external ear normal. Nose: Nose normal. No congestion or rhinorrhea. Mouth/Throat: Mouth: Mucous membranes are moist. Pharynx: Posterior oropharyngeal erythema (posterior erythema. Uvula midline.) present. No oropharyngeal exudate. Eyes: General: Right eye: No discharge. Left eye: No discharge. Extraocular Movements: Extraocular movements intact. Conjunctiva/sclera: Conjunctivae normal. Pupils: Pupils are equal, round, and reactive to light. Cardiovascular: Rate and Rhythm: Normal rate and regula (more content not included)... [facility] 05-16-2021 Note HNO ID: [id number] Author: Bradly Vernon APRN.FARRUKH Service: ? Author Type: Nurse Practitioner Type: Progress Notes Filed: 05/16/2021 5:14 PM Note Text: Subjective HPI Nontoxic-appearing female presents urgent care chief complaint constipation. Duration of symptoms 1 week. Associated symptoms abdominal pain small bowel movements and nausea. Patient was seen here yesterday. X-ray obtained. Moderate amount of stool burden noted. Patient was instructed to increase water MiraLAX. Has taken MiraLAX and had increased water intake slightly. Has not noticed a reduction abdominal pain. Patient states she does have pain with bowel movements. Has pain with wiping still way from rectum. Denies any vomiting. History of constipation. Denies any fever body aches chills productive cough chest pain shortness of breath pleuritic pain hemoptysis or change in bowel or bladder habits. Past medical history prescription medication use allergies reviewed. Denies chance . .Patient presents with: Constipation: stomach pain and nausea x 1 week PAST MEDICAL HISTORY Diagnosis Date - ADHD (attention deficit hyperactivity disorder) - Irregular periods -2015 Age 14 - PMH - PAST MEDICAL HISTORY OF 01/03/12 Color Vision - Normal PAST SURGICAL HISTORY Procedure Laterality Date - BACK SURGERY HX 2010 Tumor/ adrien removed - NONE ALLERGIES Patient has no known allergies. MEDICATIONS acetaminophen (TYLENOL) 325 mg cap Take by mouth. Lactobacillus acidophilus (PROBIOTIC) 10 billion cell cap Take by mouth. polyethylene glycol 3350 (MIRALAX) 17 gram/dose powder Constipation Uuqeetqzhjoipfw-Idzadmvwj-SW (BROMFED DM) 2-30-10 mg/5 mL syrup Take 5-10 ml po q6h prn Desogestrel-Ethinyl Estradiol (APRI) 0.15-0.03 mg per tablet Take 1 tablet by mouth once daily. albuterol HFA (PROAIR HFA) 90 mcg/actuation inhaler Inhale 2 Puffs as instructed every 6 hours as needed. FAMILY HISTORY Problem Relation Age of Onset - other (Robins-Miguel Syndrome) Father diagnosed 01/2016 - None Paternal Grandfather Social History Tobacco Use - Smoking status: Passive Smoke Exposure - Never Smoker - Smokeless tobacco: Never Used - Tobacco comment: Mother smokes outside of the home Vaping Use - Vaping Use: Former Substance Use Topics - Alcohol use: No - Drug use: No BP 120/78 Pulse 70 Temp 36.9 ?C (98.5 ?F) Resp 21 Wt 75.6 kg (166 lb 9.6 oz) LMP 04/26/2021 SpO2 98% Review of Systems Constitutional: Negative for chills, fever and malaise/fatigue. HENT: Negative for congestion, ear discharge, ear pain, sinus pain and sore throat. Eyes: Negative for blurred vision, pain, discharge and redness. Respiratory: Negative for cough, hemoptysis, sputum production, shortness of breath, wheezing and stridor. Cardiovascular: Negative for chest pain. Gastrointestinal: Positive for abdominal pain, constipation and nausea. Negative for blood in stool, diarrhea, melena and vomiting. Musculoskeletal: Negative for myalgias. Skin: Negative for itching and rash. Neurological: Negative for dizziness and headaches. Objective Physical Exam Exam conducted with a wide area network administrator present. Constitutional: General: She is not in acute distress. Appearance: She is not diaphoretic. HENT: Head: Normocephalic. Mouth/Throat: Mouth: Mucous membranes are moist. Pharynx: Oropharynx is clear. No oropharyngeal exudate or posterior oropharyngeal erythema. Eyes: Conjunctiva/sclera: Conjunctivae normal. Pupils: Pupils are equal, round, and reactive to light. Cardiovascular: Rate and Rhythm: Normal rate and regular rhythm. Heart sounds: Normal heart sounds. Pulmonary: Effort: Pulmonary effort is normal. No tachypnea, accessory muscle usage or respiratory distress. Breath sounds: Normal breath sounds. No stridor. Abdominal: General: Bowel sounds are normal. Palpations: Abdomen is soft. Tenderness: There is generalized abdominal tenderness. There is no guarding or rebound. Genitourinary: Comments: No hemorrhoids lesions or rashes noted on rectal examination. Musculoskeletal: Cervical back: Normal range of motion and neck supple. No rigidity or tenderness. Lymphadenopathy: Cervical: No cervical adenopathy. Skin: General: Skin is warm and dry. Neurological: Mental Status: She is alert and oriented to person, place, and time. ASSESSMENT/PLAN: 1. Generalized abdominal pain - ICD9: 789.07, ICD10: R10.84 Patient diagnosed with generalized abdominal pain. Low suspicion for peritonitis. Patient had no rebound or guarding. We will continue increasing water and MiraLAX. Will use suppositories. Instructed if abdominal pain worsens to be seen in ED tonight for further evaluation care. Patient was educated on supportive therapies. Patient will follow up with primary care provider as needed. Patient was instructed to immediately proceed to emergency room for any new, worseni (more content not included)... [facility] 05-16-2021 History of Presen t illness Narrative Subjective HPI Nontoxic-appearing female presents urgent care chief complaint constipation. Duration of symptoms 1 week. Associated symptoms abdominal pain small bowel movements and nausea. Patient was seen here yesterday. X-ray obtained. Moderate amount of stool burden noted. Patient was instructed to increase water MiraLAX. Has taken MiraLAX and had increased water intake slightly. Has not noticed a reduction abdominal pain. Patient states she does have pain with bowel movements. Has pain with wiping still way from rectum. Denies any vomiting. History of constipation. Denies any fever body aches chills productive cough chest pain shortness of breath pleuritic pain hemoptysis or change in bowel or bladder habits. Past medical history prescription medication use allergies reviewed. Denies chance . .Patient presents with: Constipation: stomach pain and nausea x 1 week PAST MEDICAL HISTORY Diagnosis Date ADHD (attention deficit hyperactivity disorder) Irregular periods -2015 Age 14 PMH - PAST MEDICAL HISTORY OF 01/03/12 Color Vision - Normal PAST SURGICAL HISTORY Procedure Laterality Date BACK SURGERY HX 2010 Tumor/ adrien removed NONE ALLERGIES Patient has no known allergies. MEDICATIONS acetaminophen (TYLENOL) 325 mg cap Take by mouth. Lactobacillus acidophilus (PROBIOTIC) 10 billion cell cap Take by mouth. polyethylene glycol 3350 (MIRALAX) 17 gram/dose powder Constipation Jlfaqfjgtqiedxl-Jggjzicxh-QA (BROMFED DM) 2-30-10 mg/5 mL syrup Take 5-10 ml po q6h prn Desogestrel-Ethinyl Estradiol (APRI) 0.15-0.03 mg per tablet Take 1 tablet by mouth once daily. albuterol HFA (PROAIR HFA) 90 mcg/actuation inhaler Inhale 2 Puffs as instructed every 6 hours as needed. FAMILY HISTORY Problem Relation Age of Onset other (Robins-Miguel Syndrome) Father diagnosed 01/2016 None Paternal Grandfather Social History Tobacco Use Smoking status: Passive Smoke Exposure - Never Smoker Smokeless tobacco: Never Used Tobacco comment: Mother smokes outside of the home Vaping Use Vaping Use: Former Substance Use Topics Alcohol use: No Drug use: No BP 120/78 Pulse 70 Temp 36.9 C (98.5 F) Resp 21 Wt 75.6 kg (166 lb 9.6 oz) LMP 04/26/2021 SpO2 98% Review of Systems Constitutional: Negative for chills, fever and malaise/fatigue. HENT: Negative for congestion, ear discharge, ear pain, sinus pain and sore throat. Eyes: Negative for blurred vision, pain, discharge and redness. Respiratory: Negative for cough, hemoptysis, sputum production, shortness of breath, wheezing and stridor. Cardiovascular: Negative for chest pain. Gastrointestinal: Positive for abdominal pain, constipation and nausea. Negative for blood in stool, diarrhea, melena and vomiting. Musculoskeletal: Negative for myalgias. Skin: Negative for itching and rash. Neurological: Negative for dizziness and headaches. Objective Physical Exam Exam conducted with a wide area network administrator present. Constitutional: General: She is not in acute distress. Appearance: She is not diaphoretic. HENT: Head: Normocephalic. Mouth/Throat: Mouth: Mucous membranes are moist. Pharynx: Oropharynx is clear. No oropharyngeal exudate or posterior oropharyngeal erythema. Eyes: Conjunctiva/sclera: Conjunctivae normal. Pupils: Pupils are equal, round, and reactive to light. Cardiovascular: Rate and Rhythm: Normal rate and regular rhythm. Heart sounds: Normal heart sounds. Pulmonary: Effort: Pulmonary effort is normal. No tachypnea, accessory muscle usage or respiratory distress. Breath sounds: Normal breath sounds. No stridor. Abdominal: General: Bowel sounds are normal. Palpations: Abdomen is soft. Tenderness: There is generalized abdominal tenderness. There is no guarding or rebound. Genitourinary: Comments: No hemorrhoids lesions or rashes noted on rectal examination. Musculoskeletal: Cervical back: Normal range of motion and neck supple. No rigidity or tenderness. Lymphadenopathy: Cervical: No cervical adenopathy. Skin: General: Skin is warm and dry. Neurological: Mental Status: She is alert and oriented to person, place, and time. ASSESSMENT/PLAN: 1. Generalized abdominal pain - ICD9: 789.07, ICD10: R10.84 Patient diagnosed with generalized abdominal pain. Low suspicion for peritonitis. Patient had no rebound or guarding. We will continue increasing water and MiraLAX. Will use suppositories. Instructed if abdominal pain worsens to be seen in ED tonight for further evaluation care. Patient was educated on supportive therapies. Patient will follow up with primary care provider as needed. Patient was instructed to immediately proceed to emergency room for any new, worsening, or symptoms lasting longer than anticipated. The patient's clinical presentation is otherwise unremarkable at this time. Based on exam and clinical finding, the patient is stable for discharge. Plan of care was discussed with patient. Patient verbalizes understanding and agrees to plan of care. This note was generated using [employer] software. It may contain errors in wording, punctuation, or spelling. Bradly Vernon APRN.FARRUKH documented in this encounter [facility] 05-15-2021 Note HNO ID: [id number] Author: RT Ne(R) Service: ? Author Type: Blister Packing Machine Tender Type: Progress Notes Filed: 05/15/2021 1:34 PM Note Text: Radiology Service Progress Note PATIENT NAME: Norma Faustin DATE OF SERVICE: May 15, 2021 TIME: 1:22 PM PATIENT IDENTITY VERIFICATION COMPLETED USING TWO (2) IDENTIFIERS: Name and Date of confirmed by patient verbally. FALL SCREENING: Has the patient had 2 falls in the last year or 1 fall with injury or currently using an Ambulatory Assistive Device (Walker, Cane, Wheelchair, Crutches, etc.)? No PATIENT GENDER DATA: Female. status: : No status: NO. PATIENT RELEVANT IMPLANT DATA REVIEWED: Yes RADIOLOGY DEPARTMENT: General X-ray: Exam(s) Completed: Abdomen X-Ray: Abdomen PERIPHERAL IV DATA: Not applicable SIGNED BY: RT Ne(R) May 15, 2021 1:22 PM [facility] 05-15-2021 Note HNO ID: [id number] Author: Angelita Ghotra APRN.CNP Service: ? Author Type: Nurse Practitioner Type: Progress Notes Filed: 05/15/2021 2:04 PM Note Text: Subjective Patient came in with complaints of abdominl pain for a week and constipation for at least five days. patient is taking over the counter gummies for digestion but not helping. No sure if she is taking in adequate water. Has never had this issue before. It is causing nausea but has not puked. Denies fever or any other symptoms at this time. The history is provided by the patient. No records management associate was used. Constipation Review of Systems Constitutional: Negative. Gastrointestinal: Positive for constipation. Skin: Negative. Objective Physical Exam Constitutional: Appearance: Normal appearance. Cardiovascular: Rate and Rhythm: Normal rate and regular rhythm. Heart sounds: Normal heart sounds. Pulmonary: Effort: Pulmonary effort is normal. Breath sounds: Normal breath sounds. Abdominal: General: Abdomen is flat. Bowel sounds are decreased. Palpations: Abdomen is soft. Comments: Patient did feel uncomfortable when the bottom was palpated see marked area. But no acute symptoms noted. Neurological: Mental Status: She is alert. PAST MEDICAL HISTORY Diagnosis Date - ADHD (attention deficit hyperactivity disorder) - Irregular periods -2015 Age 14 - PMH - PAST MEDICAL HISTORY OF 01/03/12 Color Vision - Normal PAST SURGICAL HISTORY Procedure Laterality Date - BACK SURGERY HX 2010 Tumor/ adrien removed - NONE ALLERGIES Patient has no known allergies. MEDICATIONS acetaminophen (TYLENOL) 325 mg cap Take by mouth. Lactobacillus acidophilus (PROBIOTIC) 10 billion cell cap Take by mouth. Eirigucrexiabzr-Ozshdgaws-TR (BROMFED DM) 2-30-10 mg/5 mL syrup Take 5-10 ml po q6h prn Desogestrel-Ethinyl Estradiol (APRI) 0.15-0.03 mg per tablet Take 1 tablet by mouth once daily. albuterol HFA (PROAIR HFA) 90 mcg/actuation inhaler Inhale 2 Puffs as instructed every 6 hours as needed. FAMILY HISTORY Problem Relation Age of Onset - other (Robins-Miguel Syndrome) Father diagnosed 01/2016 - None Paternal Grandfather Social History Tobacco Use - Smoking status: Passive Smoke Exposure - Never Smoker - Smokeless tobacco: Never Used - Tobacco comment: Mother smokes outside of the home Vaping Use - Vaping Use: Former Substance Use Topics - Alcohol use: No - Drug use: No ASSESSMENT/PLAN: 1. Generalized abdominal pain - ICD9: 789.07, ICD10: R10.84 - XR ABDOMEN 1V SUPINE FINDINGS: ? Nonobstructive bowel gas pattern. Moderately large stool burden. ? IMPRESSION IMPRESSION: ? Nonobstructive bowel gas pattern. ? Moderately large stool burden. ? ? ?Road Boss: RAMONA Transcribe Date/Time: May 15 2021 1:39P ? Dictated by : MD Morgan HEADLEY this time patient being placed on miralax daily until she has soft stool. Asked to increase her water intake. patient was also instructed if symptoms get worse or she does not produce a bowel movement in the next day to follow up for reevaluation. patient understood care plan and is accepting of care plan. Angelita Ghotra APRN.FARRUKH [facility] 05-15-2021 Instructions Angelita Ghotra APRN.EDITING COMPUTER PUBLISHER - 05/15/2021 1:56 PM EDT Diagnosis: Assessment Constipation What is constipation? Constipation is infrequent or uncomfortable bowel movements. Often the bowel movements are small, hard, or dry. How does it occur? You may have constipation because: You wait too long to have bowel movements. You do not drink enough fluids. You overuse laxatives. You do not eat enough fiber. You don't have enough physical activity. You are taking a medicine that has a side effect of constipation. Some medical conditions and diseases can also cause constipation. What are the symptoms? Symptoms may include having: small bowel movements hard, dry bowel movements uncomfortable or painful bowel movements that are hard to pass a longer time than usual between bowel movements. Normal frequencies for bowel movements may vary from 3 times a day to once every 3 days, depending on the person. What's important is whether there is a change in what has been normal for you. How is it treated? To ease your constipation: Do not delay bowel movements. Make sure that you go to the bathroom whenever you feel that you need to go. Drink more fluids. Increase the amount of fiber in your diet. Increase your physical activity. Ask your health care provider if any medicines you are taking may be causing constipation. Tell your health care provider if: You start having constipation after years of normal bowel movements. You have bouts of constipation alternating with bouts of diarrhea. You have pain during bowel movements or for some time afterward. Your bowel movements are tarry or have blood in them. You lose weight unexpectedly. How can I take care of myself? To help take care of yourself: Eat fresh vegetables and fruit every day. Exercise regularly. For example, walk for 20 minutes every day. Drink prune juice or eat stewed fruits at breakfast. Drink plenty of fluids. Increase the whole-grain fiber in your diet by eating cereals with 5 or more grams of fiber per bowl (for example, shredded wheat or bran flakes). Take a fiber product like Metamucil or Citrucel once or twice a day for several days if you are constipated. If the problem continues, check with your health care provider, but generally you can take 1 to 3 doses of these products a day regularly. Avoid using laxatives. Avoid using cathartics, which are products that will cause a fluid bowel movement. Cathartics irritate the lining of the intestines. documented in this encounter [facility] 05-15-2021 History of Presen t illness Narrative Images from the original note were not included. Subjective Patient came in with complaints of abdominl pain for a week and constipation for at least five days. patient is taking over the counter gummies for digestion but not helping. No sure if she is taking in adequate water. Has never had this issue before. It is causing nausea but has not puked. Denies fever or any other symptoms at this time. The history is provided by the patient. No records management associate was used. Constipation Review of Systems Constitutional: Negative. Gastrointestinal: Positive for constipation. Skin: Negative. Objective Physical Exam Constitutional: Appearance: Normal appearance. Cardiovascular: Rate and Rhythm: Normal rate and regular rhythm. Heart sounds: Normal heart sounds. Pulmonary: Effort: Pulmonary effort is normal. Breath sounds: Normal breath sounds. Abdominal: General: Abdomen is flat. Bowel sounds are decreased. Palpations: Abdomen is soft. Comments: Patient did feel uncomfortable when the bottom was palpated see marked area. But no acute symptoms noted. Neurological: Mental Status: She is alert. PAST MEDICAL HISTORY Diagnosis Date ADHD (attention deficit hyperactivity disorder) Irregular periods -2016 Age 14 PMH - PAST MEDICAL HISTORY OF 01/03/12 Color Vision - Normal PAST SURGICAL HISTORY Procedure Laterality Date BACK SURGERY HX 2010 Tumor/ adrien removed NONE ALLERGIES Patient has no known allergies. MEDICATIONS acetaminophen (TYLENOL) 325 mg cap Take by mouth. Lactobacillus acidophilus (PROBIOTIC) 10 billion cell cap Take by mouth. Ynrvtmzrgbxedaz-Chkjpfbqm-PQ (BROMFED DM) 2-30-10 mg/5 mL syrup Take 5-10 ml po q6h prn Desogestrel-Ethinyl Estradiol (APRI) 0.15-0.03 mg per tablet Take 1 tablet by mouth once daily. albuterol HFA (PROAIR HFA) 90 mcg/actuation inhaler Inhale 2 Puffs as instructed every 6 hours as needed. FAMILY HISTORY Problem Relation Age of Onset other (Robins-Miguel Syndrome) Father diagnosed 01/2016 None Paternal Grandfather Social History Tobacco Use Smoking status: Passive Smoke Exposure - Never Smoker Smokeless tobacco: Never Used Tobacco comment: Mother smokes outside of the home Vaping Use Vaping Use: Former Substance Use Topics Alcohol use: No Drug use: No ASSESSMENT/PLAN: 1. Generalized abdominal pain - ICD9: 789.07, ICD10: R10.84 - XR ABDOMEN 1V SUPINE FINDINGS: Nonobstructive bowel gas pattern. Moderately large stool burden. IMPRESSION IMPRESSION: Nonobstructive bowel gas pattern. Moderately large stool burden. Road Boss: RAMONA Transcribe Date/Time: May 15 2021 1:39P Dictated by : MD Morgan HEADLEY this time patient being placed on miralax daily until she has soft stool. Asked to increase her water intake. patient was also instructed if symptoms get worse or she does not produce a bowel movement in the next day to follow up for reevaluation. patient understood care plan and is accepting of care plan. Angelita Ghotra APRN.FARRUKH documented in this encounter [facility] 04-20-2020 History of Presen t illness Narrative Radiology Service Progress Note PATIENT NAME: Norma Faustin DATE OF SERVICE: April 20, 2020 TIME: 12:58 PM PATIENT IDENTITY VERIFICATION COMPLETED USING TWO (2) IDENTIFIERS: Name and Date of confirmed by patient verbally. FALL SCREENING: Has the patient had 2 falls in the last year or 1 fall with injury or currently using an Ambulatory Assistive Device (Walker, Cane, Wheelchair, Crutches, etc.)? No PATIENT GENDER DATA: Female. status: : No status: NO. PATIENT RELEVANT IMPLANT DATA REVIEWED: Not Applicable RADIOLOGY DEPARTMENT: General X-ray: Exam(s) Completed: Chest X-Ray PERIPHERAL IV DATA: Not applicable SIGNED BY: RT Bishnu April 20, 2020 12:58 PM documented in this encounter [facility] Evaluation note Diagnosis Generalized abdominal pain- Primary Abdominal pain, generalized [facility] noteNo assessment information availableWVan [facility] Work Phone: Evaluation note* Diagnosis Generalized abdominal pain- Primary Abdominal pain, generalized [facility] Diagnosis Infection- Primary Unspecified infectious and parasitic diseases [facility] Diagnosis Hordeolum externum of left upper eyelid- Primary Hordeolum externum [facility]* Diagnosis Pharyngitis, unspecified etiology- Primary Fatigue, unspecified type Viral illness Unspecified viral infection, in conditions classified elsewhere and of unspecified site documented in this encounter [facility] note* Diagnosis Pharyngitis, unspecified etiology- Primary Exposure to COVID-19 virus URI, acute Acute upper respiratory infections of unspecified site [facility] Diagnosis Sore throat- Primary Acute pharyngitis Viral URI with cough Acute upper respiratory infections of unspecified site [facility] Diagnosis Generalized abdominal pain Abdominal pain, generalized [facility] Diagnosis Suspected COVID-19 virus infection documented in this encounter [facility] for referral (narrative)* Diagnostic Procedure Only (Urgent) - Closed Specialty Diagnoses / Procedures Referred By Contac t Referred To Contact XR IMAGING Diagnoses Generalized abdominal pain Procedures XR ABDOMEN 1V SUPINE RADIOLOGIC EXAM ABDOMEN 1 VIEW Angelita Ghotra APRN.EDITING COMPUTER PUBLISHER [address] [place] [address] Xr Imaging Referral ID Status Reason Start Date Expiration Date V isits Requested Visits Authorized [id number] Closed Auto-Generate d Referral 05/15/2021 06/14/2022 1 1 [facility] for referral (narrative)* Diagnostic Procedure Only (Urgent) - Closed Specialty Diagnoses / Procedures Referred By Contac t Referred To Contact XR IMAGING Diagnoses Generalized abdominal pain Procedures XR ABDOMEN 1V SUPINE RADIOLOGIC EXAM ABDOMEN 1 VIEW Angelita Ghotra APRN.EDITING COMPUTER PUBLISHER [address] [place] [address] [place] [address] Referral ID Status Reason Start Date Expiration Date V isits Requested Visits Authorized [id number] Closed Auto-Generate d Referral 05/15/2021 06/14/2022 1 1 [facility] for visit Narrative* Diagnostic Procedure Only (Urgent) - Closed Specialty Diagnoses / Procedures Referred By Contac t Referred To Contact XR IMAGING Diagnoses Generalized abdominal pain Procedures XR ABDOMEN 1V SUPINE RADIOLOGIC EXAM ABDOMEN 1 VIEW Angelita Ghotra APRN.EDITING COMPUTER PUBLISHER [address] [place] [address] [place] [address] Referral ID Status Reason Start Date Expiration Date V isits Requested Visits Authorized [id number] Closed Auto-Generate d Referral 05/15/2021 06/14/2022 1 1 [facility] Summary Purpose Family History Relationship Condition Age at Onset Recorded Date/T katherin Not Specified Hypertension Unknown Disorder of thyroid Unknown Malignant neoplasm Unknown Diabetes mellitus Unknown Arthritis Unknown Advance Directives Advance Directive Response Recorded Date/ Time Living Will No May 16, 2021 6:53pm Power of Women Designer No May 16 6:53pm Chief Complaint and Reason for Visit Chief Complaint CONSTIPATION Health Concerns Infection Onset Date Last Indicated Resolved Time COVID-19 Rule-Out 10/23/2021 10/23/2021 10/24/2021 6:21 AM EDT Infection Onset Date Last Indicated Resolved Time COVID-19 Rule-Out 12/12/2021 12/12/2021 Infection Onset Date Last Indicated Resolved Time COVID-19 Rule-Out 12/12/2021 12/12/2021 12/13/2021 2:34 AM EDT Infection Onset Date Last Indicated Resolved Time COVID-19 Rule-Out 02/19/2022 02/19/2022 Additional Source Comments INFORMATION SOURCE (unrecogn ized section and content) DATE CREATED AUTHOR 09/23/2018 Dennisbasilio Goelanila [facility] DATE CREATED AUTHOR AUTHOR'S ORGANIZ ATION 03/20/2022 [facility] DATE CREATED AUTHOR AUTHOR'S ORGANIZ ATION 09/13/2022 [facility] Source Comments (unrecognize d section and content) In the event this informatio n is protected by the Federal Confidentiality of Alcohol and Drug Abuse Patient Records regulations: The Federal rules restrict any use of the information to criminally investigate or prosecute any alcohol or drug abuse patient.[facility] the event this information is protected by the Federal Confidentiality of Alcohol and Drug Abuse Patient Records regulations: The Federal rules restrict any use of the information to criminally investigate or prosecute any alcohol or drug abuse patient.[facility] the event this information is protected by the Federal Confidentiality of Alcohol and Drug Abuse Patient Records regulations: The Federal rules restrict any use of the information to criminally investigate or prosecute any alcohol or drug abuse patient.[facility] the event this information is protected by the Federal Confidentiality of Alcohol and Drug Abuse Patient Records regulations: The Federal rules restrict any use of the information to criminally investigate or prosecute any alcohol or drug abuse patient.[facility] the event this information is protected by the Federal Confidentiality of Alcohol and Drug Abuse Patient Records regulations: The Federal rules restrict any use of the information to criminally investigate or prosecute any alcohol or drug abuse patient.[facility] the event this information is protected by the Federal Confidentiality of Alcohol and Drug Abuse Patient Records regulations: The Federal rules restrict any use of the information to criminally investigate or prosecute any alcohol or drug abuse patient.[facility] the event this information is protected by the Federal Confidentiality of Alcohol and Drug Abuse Patient Records regulations: The Federal rules restrict any use of the information to criminally investigate or prosecute any alcohol or drug abuse patient.[facility] the event this information is protected by the Federal Confidentiality of Alcohol and Drug Abuse Patient Records regulations: The Federal rules restrict any use of the information to criminally investigate or prosecute any alcohol or drug abuse patient.[facility] the event this information is protected by the Federal Confidentiality of Alcohol and Drug Abuse Patient Records regulations: The Federal rules restrict any use of the information to criminally investigate or prosecute any alcohol or drug abuse patient.[facility] the event this information is protected by the Federal Confidentiality of Alcohol and Drug Abuse Patient Records regulations: The Federal rules restrict any use of the information to criminally investigate or prosecute any alcohol or drug abuse patient.[facility] the event this information is protected by the Federal Confidentiality of Alcohol and Drug Abuse Patient Records regulations: The Federal rules restrict any use of the information to criminally investigate or prosecute any alcohol or drug abuse patient.[facility] Reason for Visit (unrecogniz ed section and content) Reason Comments Constipation Pt reported x5 days no BM, dneied blood, mucus with prior BM Nausea Reason Comments Constipation stomach pain and dorys sea x 1 week Reason Comments Results Reason Comments Eye Problem Left eye swollen and itchy x 1 day Reason Comments Eye Problem Left eye infection x 2 weeks Reason Comments Sore Throat STEVENSON, fever x 3 days Reason Comments Pain, Throat Pt reported cough, f ever, throat pain rated 7, x1 day. +Covid exposure. 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 Specialty Start Date End Date Francisco Delgadillo MD [address] [place] [address] PCP - General Pediatrics 11/26/18 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 Specialty Start Date End Date Francisco Delgadillo MD [address] [place] [address] PCP - General Pediatrics 11/26/18 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 Specialty Start Date End Date Francisco Delgadillo MD [address] [place] [address] PCP - General Pediatrics 11/26/18 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 Specialty Start Date End Date Francisco Delgadillo MD [address] [place], [place] [id number] PCP - General Pediatrics 11/26/18 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 This clinical summary was aggregated from multiple sources. Caution should be exercised in using it in the provision of clinical care. This summary normalizes information from multiple sources, and as a consequence, information in this document may materially change the coding, format and clinical context of patient data. In addition, data may be omitted in some cases. CLINICAL DECISIONS SHOULD BE BASED ON THE PRIMARY CLINICAL RECORDS. [employer] [facility]. provides no warranty or guarantee of the accuracy or completeness of information in this document.
== END 2024-10-30 20:40 | disposition left against medical advice (07) ==
LOC: ED 20:48
DX: R69 Illness, unspecified (principal)